=== PATIENT | female | born 1965 | race Caucasian/White ===

== ENCOUNTER 2024-06-21 12:50 | Outpatient (AMB) | payer OTHER, SELFPAY ==
--- NOTE | 2024-06-21 12:50 | A.OFFVIS_ITS ---
Vital Signs 06/21/24 12:51 Height 5 ft 1 in Weight 236 lb 5.369 oz BMI 44.7 BP 120/72 Blood Pressure Location Lt brachial Position Standing Pulse 79 Pulse Source Pulse Oximeter Intake Visit Reasons: GCA/LM Intake Note: Patient present today for [facility] office visit. Fondant Puff Maker Required: No Accompanied by: Self / Same As Patient Allergies ibuprofen Allergy (Mild, Verified 06/21/24 12:56) Unknown varenicline [From Chantix] Allergy (Mild, Verified 06/21/24 12:56) Unknown HPI Comments Details: No records recieved. Hx GCA clinical dx. Tapered off of prednisone 1.5 month ago then restarted on prednisone 5mg qd a month ago for relapsed disease. She has scalp tenderness. No change in symptoms on prednisone 5mg daily. She was instructed from physician at [facility] to taper prednisone every week. SHe felt good when she was on prednisone 20mg qd. Hard time getting up in the morning. Sore shoulders. Going to PT for neck OA/impingement causing neck pain with parathesia in fingers. No jaw pain. Using reading glasses more. No black out. No fevers. 1-1.5 months ago she fractured left ankle (unable to determine it was an old or new fracture). She fell at work a few days before left ankle was symptomatic. [facility] Family History (Updated 06/21/24 @ 13:02 by WARREN Ludwig) Mother Diabetes Heart disease Breast cancer Father Arthritis Liver cancer Social History (Updated 06/21/24 @ 13:02 by WARREN Ludwig) Alcohol intake: never Patient Tobacco Use Status: Current everyday Tobacco user Review of Systems Const All systems reviewed & are unremarkable except as noted in HPI and below Physical Exam Vital Signs: Last Vital Signs Pulse 79 06/21/24 12:51 BP 120/72 06/21/24 12:51 BMI result Body Mass Index 44.7 Const General: healthy appearing and comfortable Resp Auscultation: clear to auscultation bilaterally Cardio Rate: regular rate Rhythm: regular rhythm Heart sounds: S1 normal heart sound present and S2 normal heart sound present Extrem Other: Tender bilateral temples. Scalp tenderness on palpation. Able to get up from seated position without using arm rest. Pain with shoulder abduction above 90 degrees bilateral with max abduction 120 degrees bilateral. No synovitis Limited full ROM of hips and shoulders General: Yes normal gait Assessment & Plan Assessment & Plan (1) Giant cell arteritis: Comment: Clinical dx (TA bx negative) with concurrent PMR. Relapsed - scalp tenderness, fatigue, shoulder/hip girdle pain. Tapered off prednisone too fast. Will obtain labs to assess disease activity and increase prednisone. Code(s): M31.6 - Other giant cell arteritis Category: Medical Plan: Check esr and crp tomorrow then increase prednisone 20mg qd for a month. in 4 weeks recheck esr and crp. Plan to start tapering prednisone slowly if inflammatory markers are normal and patient feels well. RTC 3 months (2) PMR (polymyalgia rheumatica): Comment: Uncontrolled Code(s): M35.3 - Polymyalgia rheumatica Category: Medical Plan: See above (3) Long-term use of high-risk medication: Comment: intermediate use of prednisone Code(s): Z79.899 - Other senior care (current) drug therapy Category: Medical Plan: She will need bone density Plan . Orders: Orders Alanine Aminotransferase Today M31.6 - Other giant cell arteritis, Z79.899 - Other senior care (current) drug therapy Creatinine Today Z79.899 - Other terminal makeup operator (current) drug therapy Erythrocyte Sedimentation Rate Today M31.6 - Other giant cell arteritis, Z79.899 - Other terminal makeup operator (current) drug therapy Albumin Level Today M31.6 - Other giant cell arteritis Erythrocyte Sedimentation Rate 1 Month M31.6 - Other giant cell arteritis, Z79.899 - Other senior care (current) drug therapy C Reactive Protein 1 Month M31.6 - Other giant cell arteritis, Z79.899 - Other terminal makeup operator (current) drug therapy Aspartate Amino Transferase Today M31.6 - Other giant cell arteritis C Reactive Protein Today M31.6 - Other giant cell arteritis Complete Blood Count Auto Diff Today M31.6 - Other giant cell arteritis Vitamin D 25-OH Total Today Z79.899 - Other senior care (current) drug therapy Calcium Today Z79.899 - Other senior care (current) drug therapy XR DEXA axial skeleton 06/21/24 M31.6 - Other giant cell arteritis, Z79.899 - Other senior care (current) drug therapy Medications: New prednisone 20 mg PO DAILY 1 tab 1RF Coding Level of Care Code Est Pt Level 4 (42392) Complex EM visit Add On G2211 Diagnoses Giant cell arteritis M31.6 PMR (polymyalgia rheumatica) M35.3 Long-term use of high-risk medication Z79.899
[2024-06-21 12:51] VITALS: BP 120/72; PULSE 79; BMI 44.7
== END 2024-06-21 13:42 | disposition home or self-care (01) ==
PROVIDERS: Visit Provider Internal Medicine Rheumatology
DX: M31.6 Other giant cell arteritis (principal); M35.3 Polymyalgia rheumatica; Z79.899 Other long term (current) drug therapy
CPT/HCPCS: 99214

== ENCOUNTER 2024-06-22 07:39 | Outpatient (REF) | payer OTHER, SELFPAY ==
[2024-06-22 10:30] LABS: MANUAL DIFF FLAG NO
[2024-06-22 10:32] LABS: Basophils Absolute Auto 0.1 X10*3/uL (0.0-0.2); Basophils Percent Auto 0.9 % (0-2); Eosinophils Absolute Auto 0.2 X10*3/uL (0.0-0.4); Eosinophils Percent Auto 3.1 % (0-4); Hematocrit 37.8 % (37.0-47.0); Hemoglobin 12.3 g/dl (12.0-16.0); Imm Gran Abs Auto 0.01 X10*3/uL (0.00-0.03); Imm Gran Pct Auto 0.2 % (0.0-0.4); Lymphocytes Absolute Auto 1.5 X10*3/uL (1.2-4.9); Lymphocytes Percent Auto 27.4 % (20-40); Mean Corpuscular HGB Conc 32.5 g/dl (31.0-35.0); Mean Corpuscular Volume 92.2 fL (80.0-98.0); Mean Platelet Volume 8.8 fL (9.4-12.3); Monocytes Absolute Auto 0.5 X10*3/uL (0.1-1.2); Monocytes Percent Auto 8.5 % (2-11); Neutrophils Absolute Auto 3.3 x10*3/uL (2.0-8.3); Neutrophils Percent Auto 59.9 % (45-73); Platelet Count 270 X10*3/uL (160-400); White Blood Count 5.4 X10*3/uL (4.8-10.8)
[2024-06-22 11:07] LABS: Alanine Aminotransferase 27 U/L (0-31); Albumin Level 4.2 g/dL (3.5-5.0); Aspartate Amino Transferase 21 U/L (5-31); C Reactive Protein 1.48 mg/dL (< or = 0.50); Calcium 9.1 mg/dL (8.4-10.2); Estimated Glomerular Filt Rate > 60
[2024-06-22 11:09] LABS: Vitamin D 25-OH Total 27.9 ng/mL (>30)
[2024-06-22 11:19] LABS: Erythrocyte Sedimentation Rate 25 MM/HR (0-20)
== END 2024-06-22 07:40 | disposition home or self-care (01) ==
LOC: HO.10HDL 07:39
PROVIDERS: Visit Provider Internal Medicine Rheumatology
DX: M31.6 Other giant cell arteritis (principal); Z79.899 Other long term (current) drug therapy
CPT/HCPCS: 36415; 82040; 82306; 82310; 82565; 84450; 84460; 85025; 85652; 86140

== ENCOUNTER 2024-08-28 11:17 | Outpatient (AMB) | payer OTHER, SELFPAY ==
--- NOTE | 2024-08-28 11:54 | A.OFFVIS_ITS ---
Vital Signs 08/28/24 11:56 Height 5 ft 1 in Weight 248 lb 4 oz BMI 46.9 BP 132/78 Blood Pressure Location Lt brachial Position Sitting Pulse 89 Pulse Source Pulse Oximeter Pulse Oximetry (%) 97 Oxygen Delivery Method Room Air Intake Visit Reasons: follow up Intake Note: Patient presents for follow up on Giant cell arteritis and PMR, and lab review. She last saw Dr. Dewitt on 06/21/2024. Allergies ibuprofen Allergy (Mild, Verified 08/28/24 11:57) Unknown varenicline [From Chantix] Allergy (Mild, Verified 08/28/24 11:57) Unknown HPI HPI follow up: Details: She has not had prednisone in 3 weeks. She was attempting to go to [facility] on [address] but it was temporarily closed. She eventually had labs done which reveal persistent elevation of inflammatory markers. When on prednisone 20 mg daily she had about 50% benefit in reducing her pain and stiffness. She reports that headaches were resolved and she was functioning better. Since being off of prednisone she has had recurrent headaches, scalp tenderness, increased pain in her arms and legs. She has stiffness all day. She had to call out of work a few times. She has difficulty getting up from seated position. [facility] Family History (Updated 06/21/24 @ 13:02 by WARREN Ludwig) Mother Diabetes Heart disease Breast cancer Father Arthritis Liver cancer Social History (Updated 06/21/24 @ 13:02 by WARREN Ludwig) Alcohol intake: never Patient Tobacco Use Status: Current everyday Tobacco user Review of Systems Const All systems reviewed & are unremarkable except as noted in HPI and below Physical Exam Vital Signs: Last Vital Signs Pulse 89 08/28/24 11:56 BP 132/78 08/28/24 11:56 Pulse Ox 97 08/28/24 11:56 Oxygen Delivery Method Room Air 08/28/24 11:56 BMI result Body Mass Index 46.9 Const Other: General: Comfortable CVS: RRR Respiratory: clear to auscultation bilaterally. Good respiratory effort Skin: No lesions seen MSK: She is able to get up from seated position to standing position but with difficulty and pain. She walks slowly to exam table. Shoulder abduction 90 degrees with limited full internal and external rotation bilaterally. She has no synovitis on exam. Knee and hip flexion is limited bilaterally due to pain. Diffuse allodynia upper extremities and lower extremities. Results Reviewed Results Reviewed: [facility] 2022 and 2023 reviewed. T spot and hepatitis panel up-to-date. Assessment & Plan Assessment & Plan (1) Giant cell arteritis: Comment: Clinical dx (bilateral TA bx negative) with concurrent PMR. Initially presenting with headaches, jaw claudication, scalp tenderness, stiffness, shoulder girdle and hip girdle pain with reduced function. She responded to high dose prednisone but was tapered too quickly at the [facility] 04/2024 and relapsed with headaches, scalp tenderness, fatigue, stiffness, shoulder/hip girdle pain. She has been out of prednisone for 3 weeks and subsequently relapse, which is reflected on her recent inflammatory markers being elevated off of prednisone. We discussed the importance of tapering prednisone slowly to prevent relapse. Code(s): M31.6 - Other giant cell arteritis Category: Medical Plan: Prednisone 40 mg daily prescribed Patient will call in 1 week to report clinical update with response to prednisone Inflammatory markers, calcium, vitamin-D, albumin ordered for next visit Return to clinic in 2 months. We will consider Actemra. History of hyperlipidemia controlled on atorvastatin. (2) PMR (polymyalgia rheumatica): Comment: Uncontrolled off of prednisone. Code(s): M35.3 - Polymyalgia rheumatica Category: Medical Plan: See plan above (3) Fibromyalgia: Comment: Diffuse allodynia is consistent with fibromyalgia. Code(s): M79.7 - Fibromyalgia Category: Medical Plan: We will treat relapsed chronic autoimmune disease with prednisone and and re- evaluate her next visit. Return to clinic in 2 months (4) Long-term use of high-risk medication: Comment: bed bug exterminator use of prednisone Code(s): Z79.899 - Other [facility] (current) drug therapy Category: Medical Plan: Calcium, albumin, vitamin-D ordered She will need bone density next visit due to long-term use of systemic glucocorticoid therapy Return to clinic in 2 months Orders: Orders Calcium 2 Weeks Z79.899 - Other middle or intermediate school principal (current) drug therapy Erythrocyte Sedimentation Rate 2 Weeks M31.6 - Other giant cell arteritis, M35.3 - Polymyalgia rheumatica C Reactive Protein 2 Weeks M31.6 - Other giant cell arteritis, M35.3 - Polymyalgia rheumatica Vitamin D 25-OH Total 2 Weeks Z79.899 - Other [facility] (current) drug therapy Albumin Level 2 Weeks Z79.899 - Other middle or intermediate school principal (current) drug therapy Medications: New prednisone Take with food. 40 mg (2 x 20 mg) PO DAILY 60 tabs 0RF Coding Level of Care Code Est Pt Level 4 (37423) Complex EM visit Add On G2211 Diagnoses Giant cell arteritis M31.6 PMR (polymyalgia rheumatica) M35.3 Fibromyalgia M79.7 Long-term use of high-risk medication Z79.897
[2024-08-28 11:56] VITALS: BP 132/78; PULSE 89; O2SAT 97; BMI 46.9
== END 2024-08-28 12:28 | disposition home or self-care (01) ==
PROVIDERS: Visit Provider Internal Medicine Rheumatology
DX: M31.6 Other giant cell arteritis (principal); M35.3 Polymyalgia rheumatica; M79.7 Fibromyalgia; Z79.899 Other long term (current) drug therapy
CPT/HCPCS: 99214

== ENCOUNTER 2024-09-19 09:19 | Outpatient (REF) | payer OTHER, SELFPAY ==
[2024-09-19 12:08] LABS: C Reactive Protein 1.07 mg/dL (< or = 0.50)
[2024-09-19 12:15] LABS: Vitamin D 25-OH Total 34.7 ng/mL (>30)
[2024-09-19 12:20] LABS: Erythrocyte Sedimentation Rate 27 MM/HR (0-20)
== END 2024-09-19 09:20 | disposition home or self-care (01) ==
LOC: HO.WFDLDS 09:19
PROVIDERS: Visit Provider Internal Medicine Rheumatology
DX: Z79.899 Other long term (current) drug therapy (principal); M35.3 Polymyalgia rheumatica; M31.6 Other giant cell arteritis
CPT/HCPCS: 36415; 82040; 82306; 82310; 85652; 86140

== ENCOUNTER 2024-09-20 12:22 | Outpatient (AMB) | payer OTHER, SELFPAY ==
[2024-09-20 12:33] VITALS: BP 118/68; PULSE 91; O2SAT 96; BMI 46.9
--- NOTE | 2024-09-20 12:33 | MHC.OFFVIS ---
Vital Signs 09/20/24 12:33 Height 5 ft 1 in Weight 248 lb 8 oz BMI 46.9 BP 118/68 Blood Pressure Location Lt brachial Position Sitting Pulse 91 Pulse Source Pulse Oximeter Pulse Oximetry (%) 96 Oxygen Delivery Method Room Air Intake Visit Reasons: Follow up 3mo Intake Note: Patient presents for follow up. Patient gained weight and knee surgery was cx would like to stop prednisone and try something else Allergies ibuprofen Allergy (Mild, Verified 09/20/24 12:35) Unknown varenicline [From Chantix] Allergy (Mild, Verified 09/20/24 12:35) Unknown HPI HPI Follow up 3mo: Details: She is on prednisone 60 mg daily. She has headaches every other day rather than daily. She describes headaches in the left temporal region. Jaw pain has resolved. Scalp tenderness has resolved. She has less pain and increase mobility. She continues to have pain but the intensity has reduced. She has left buttocks pain when she is seated. She still has difficulty getting out of the chair from seated position. She has tremors in her extremities. She has difficulty sleeping and thinks she has restless leg syndrome. This all started since being on higher dose of prednisone. Knee replacement surgery has been delayed as patient has gained weight from her last visit with orthopedic surgeon. She has been on FMLA out of work for the last 2 weeks. [facility] Family History Mother Diabetes Heart disease Breast cancer Father Arthritis Liver cancer Social History Alcohol intake: never Patient Tobacco Use Status: Current everyday Tobacco user Review of Systems Const All systems reviewed & are unremarkable except as noted in HPI and below Physical Exam Vital Signs: Last Vital Signs Pulse 91 09/20/24 12:33 BP 118/68 09/20/24 12:33 Pulse Ox 96 09/20/24 12:33 Oxygen Delivery Method Room Air 09/20/24 12:33 BMI result Body Mass Index 46.9 Const Other: General: Comfortable CVS: RRR Respiratory: clear to auscultation bilaterally. Good respiratory effort Skin: No lesions seen MSK: She is able to get up from seated position to standing position without using arm rests. Shoulder abduction 160 degrees with good internal and external rotation. She has no synovitis on exam. Knee and hip flexion is limited bilaterally due to pain with crepitus. Bilateral trochanteric bursa tenderness is found. Assessment & Plan Assessment & Plan (1) Giant cell arteritis: Comment: Clinical dx (bilateral TA bx negative) with concurrent PMR. She has had benefit on increase prednisone 40mg daily but not complete resolution of GCA and PMR symptoms. She also has persistent elevation in inflammatory markers. She is experiencing tremors in upper and lower extremities, anxiety and weight gain due to intermediate designer prednisone use. Her knee replacement surgery has to be held until patient loses 20 lbs. She is currently on FMLA due to planned knee surgery. We discussed the risk of having active autoimmune diseases requiring high dose prednisone and escalation of immunosuppression therapy on increased risk of infection and delayed wound healing after surgery and that it would be best to postpone total knee replacement until her disease is under better controlled, ideally when it is in remission and off of prednisone. I recommended tapering prednisone slowly. Actemra is indicated. We discussed treatment with Actemra, side effects, benefits and drug monitoring. She has a history of hyperlipidemia controlled on atorvastatin. Initially presenting with headaches, jaw claudication, scalp tenderness, stiffness, shoulder girdle and hip girdle pain with reduced function. She responded to high dose prednisone but was tapered too quickly at the [facility] 04/[facility]24 and relapsed with headaches, scalp tenderness, fatigue, stiffness, shoulder/hip girdle pain. She relapsed when she was out of prednisone for 3 weeks with elevated inflammatory markers. She was restarted on prednisone 20 mg daily then it was increased to 40 mg daily 08/2024. Code(s): M31.6 - Other giant cell arteritis Category: Medical Plan: Fasting lipid panel and baseline labs prior to starting Actemra ordered. After lab results are back, I will start PA process for actemra [place]. Decrease prednisone to 30 mg daily for 1 week then 5 mg every week until she is on 10 mg daily. She will then remain on 10 mg daily Patient will call office in 1 week with clinical update She will bring in FMLA forms to complete Return to clinic in 2 months (2) PMR (polymyalgia rheumatica): Comment: Improvement on high dose prednisone but she is experiencing side effects on long-term glue corticosteroid use as mentioned above. Persistent elevation in inflammatory markers. Code(s): M35.3 - Polymyalgia rheumatica Category: Medical Plan: See above (3) Long-term use of high-risk medication: Comment: bed bug exterminator use of prednisone Code(s): Z79.899 - [facility] [place] [facility] drug therapy Category: Medical Plan: She will need a bone density. Ordered last visit Orders: Orders Alanine Aminotransferase Today Z79.60 - bed bug exterminator (current) use of unspecified immunomodulators and immunosuppressants Aspartate Amino Transferase Today Z79.60 - bed bug exterminator (current) use of unspecified immunomodulators and immunosuppressants Creatinine Today Z79.60 - bed bug exterminator (current) use of unspecified immunomodulators and immunosuppressants Hepatitis B,C Profile Today M31.6 - Other giant cell arteritis, M35.3 - Polymyalgia rheumatica T Spot TB Today Z79.899 - Other [place] [facility] drug therapy Lipid Panel Today Z79.899 - Other [place] [facility] drug therapy Complete Blood Count Auto Diff Today Z79.60 - bed bug exterminator (current) use of unspecified immunomodulators and immunosuppressants Medications: New prednisone Take 3 tablets daily 1 week, 2.5 tablet daily 1 week, 2 tablets daily 1 week, 1.5 tablet daily 1 week then stay on 1 tablet daily 10 mg PO DIRECTED 35 days 35 tabs 0RF Coding Level of Care Code Est Pt Level 4 (75481) Complex EM visit Add On G2211 Diagnoses Giant cell arteritis M31.6 PMR (polymyalgia rheumatica) M35.3 Long-term use of high-risk medication Z79.899
--- OUTSIDE RECORDS SUMMARY | 2024-09-20 12:35 | XMS_ITS | Encounter Summary ---
Author Organization [facility] Address [address] [place] [address] Care Team Providers Care Agricultural Extension Officer Name Role Phone Naomi Oliveira MD Primary Care Provider Lubna Hollingsworth Primary Care Provider Unav ailable Reason for Visit * Reason Onset Date Comments Rash 07/10/2020 Encounter Details Date Type Department Care Team Description 07/10/2020 Telephone Medicine/Pediatrics - [address] [id number] Naomi Oliveira MD Rash Social History Tobacco Use Types Packs/Day Years Used Date Smoking Tobacco: Every Day Cigarettes 1 35 Started: 1981 Smokeless Tobacco: Never Comments:now less than 1PPD (~1/2 PPD) Alcohol Use Standard Drinks/Week Comments Yes 0 (1 standard drink = 0.6 oz pur e alcohol) infrequent beer Sex Assigned at Date Recorded Not on file documented as of this encounter Miscellaneous Notes * Telephone Encounter - Melonie Chu L.P.N. - 07/16/2020 8:27 AM EST Left message on unverified voice mail for patient to return our call. * Telephone Encounter - Mitra Thompson L.P.N. - 07/10/2020 5:00 PM EST I tried to contact you today but I was not able to reach you by phone. Please call me at [phone] Thank you, [facility]. * Telephone Encounter - Valery Ramos R.N. - 07/10/2020 4:10 PM EST Left vm for pt to return my call and speak with a nurse * Telephone Encounter - Katie Hough - 07/10/2020 11:45 AM EST Symptoms patient is presenting: pimply rash on back arm and breast, red, sores raised,itchy For ALL patients calling to schedule any appointment (routine, sick visit, follow up, consult, etc.) in the outpatient setting please ask the following questions: ?? Do you have fever of higher than 101, sore throat with difficulty swallowing or severe shortnessof breath? NO If YES to any of these above symptoms, send a message to triage and do not book. Red dot. If no, an audio or video visit should be booked. ?? Have you had close contact with someone with Coronavirus in the last 14 days? NO ?? Have you traveled abroad? NO ?? Have you traveled recently to another state outside of [place], [place], [place], [place], [place], [place], [place]? NO o If yes, did you quarantine for 14 days or have a negative covid test? NO If yes to any of the above, patient is not to be scheduled in office until after 14 day quarantine or negative covid test. If pain or injury related was it due to an accident at work or from a motor vehicle accident? NO If yes, gather 3rd democrat insurance information Date of accident/Injury: How long has patient had these symptoms?: Comes and goes. , getting worse. PCP: NAOMI OLIVEIRA Payor: [employer] [facility] [employer] / Plan: HMO $30 [employer]AS[employer] / Product Type: HMO [id number] documented in this encounter Plan of Treatment Not on file documented as of this encounter Visit Diagnoses Not on filedocumented in this encounter Care Teams Agricultural Extension Officer Relationship Specialty Start Date End Date Naomi Oliveira MD PCP - General Internal Medicine 11/21/18 03/26/21 Lubna Johnson FNP PCP - General Nurse Practitioner Family 11/21/23 documented as of this encounter
--- OUTSIDE RECORDS SUMMARY | 2024-09-20 12:35 | XMS_ITS | Encounter Summary ---
Author Organization [facility] Address [address] [place] [address] Care Team Providers Care Auto Hiker Name Role Phone Lubna Johnson Primary Care Provider Unav ailable Encounter Details Date Type Department Care Team Description 01/12/2024 Transfer Records Medical Records [address], [facility] Social History Tobacco Use Types Packs/Day Years Used Date Smoking Tobacco: Some Days Cigarettes 35 Started: 1981 Smokeless Tobacco: Never Comments:now less than 1PPD (~1/2 PPD) barley smokes Alcohol Use Standard Drinks/Week Comments Yes 0 (1 standard drink = 0.6 oz pur e alcohol) infrequent beer Sex Assigned at Date Recorded Not on file documented as of this encounter Plan of Treatment Not on file documented as of this encounter Visit Diagnoses Not on filedocumented in this encounter Care Teams Auto Hiker Relationship Specialty Start Date End Date Lubna Johnson FNP PCP - General Nurse Practitioner Family 11/21/23 documented as of this encounter
--- OUTSIDE RECORDS SUMMARY | 2024-09-20 12:35 | XMS_ITS | Encounter Summary ---
Author Organization [facility] Address [address] [place] [address] Care Team Providers Care Rfid Strategist Name Role Phone Piotr Isbell MD Primary Care Provider Lubna Hollingsworth Primary Care Provider Lindsey ailnéstor Encounter Details Date Type Department Care Team Description 04/17/2019 Gang Vibrator Operator Report Medical Records [address] [place] [id number] [place] Nila Euceda Social History Tobacco Use Types Packs/Day Years Used Date Smoking Tobacco: Every Day Cigarettes 1 35 Smokeless Tobacco: Never Comments:1 PPD Alcohol Use Standard Drinks/Week Comments Yes 0 (1 standard drink = 0.6 oz pur e alcohol) infrequent beer Sex Assigned at Date Recorded Not on file documented as of this encounter Plan of Treatment Not on file documented as of this encounter Visit Diagnoses Not on filedocumented in this encounter Care Teams Rfid Strategist Relationship Specialty Start Date End Date Piotr Isbell MD PCP - General Internal Medicine 11/21/18 03/26/21 Lubna Johnson FNP PCP - General Nurse Practitioner Family 11/21/23 documented as of this encounter
--- OUTSIDE RECORDS SUMMARY | 2024-09-20 12:35 | XMS_ITS | Encounter Summary ---
Author Organization [facility] Address [address] [place] [address] Care Team Providers Care Manager Helpdesk Name Role Phone Piotr Isbell MD Primary Care Provider Lubna Hollingsworth Primary Care Provider Unav ailable Reason for Visit * Reason Onset Date Comments medication problems 10/29/2019 Encounter Details Date Type Department Care Team Description 10/29/2019 Telephone Medicine/Pediatrics - [address] [phone] Piotr Isbell MD medication problems Social History Tobacco Use Types Packs/Day Years [...] encounter Miscellaneous Notes * Telephone Encounter - Piotr Isbell MD - 10/29/2019 12:52 PM EDT noted * Telephone Encounter - Brittney Mcfadden R.N. - 10/29/2019 12:50 PM EDT Patient would like virtual visit. Virtual visit scheduled for 2:30 pm today * Telephone Encounter - Piotr Isbell MD - 10/29/2019 11:58 AM EDT This would be more appropriately done via telehealth as she was supposed to f/u for mood one month after last visit. Can increase prozac to 40mg daily, can take 4-6 weeks to see clinical improvement,increased risks of stomach upset, constipation, diarrhea, nausea, headache, insomnia, fatigue, libido issues. Could consider short term prn ativan for acute anxiety, this could make her sleepy/groggy/tired, should ideally not be taken prior to work or while driving due to the risk of these side effects. Let me know her thoughts or if she would like to do a telehealth visit even this afternoon. thanks * Telephone Encounter - Brittney Mcfadden R.N. - 10/29/2019 10:58 AM EDT Called and spoke with patient, Complains of Increased anxiety attacks when getting to work. 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 She was off this weekend, experienced shaking/hot, a little SOB. Some stomach upset as well. Denies CP, fever. Attempted to do activities such as walking throughout the weekend with no success. She is asking to either increase her Prozac or get something temporary for the acute symptoms. * Telephone Encounter - Negrita Rae - 10/29/2019 9:51 AM EDT Pt calling states she would like her fluoxetine (PROZAC) 20 MG tablet increased her anxiety is really bad with everything going on Pls advise documented in this encounter Plan of Treatment Not on file documented as of this encounter Visit Diagnoses Not on filedocumented in this encounter Care Teams Manager Helpdesk Relationship Specialty Start Date End Date Piotr Isbell MD PCP - General Internal Medicine 11/21/18 03/26/21 Lubna Johnson FNP PCP - General Nurse Practitioner Family 11/21/23 documented as of this encounter
--- OUTSIDE RECORDS SUMMARY | 2024-09-20 12:35 | XMS_ITS | Encounter Summary ---
Author Organization [facility] Address [address] [place] [address] Care Team Providers Care Yarn Mercerizer Operator Name Role Phone Piotr Isbell MD Primary Care Provider Lubna Hollingsworth Primary Care Provider Lindsey maloney Encounter Details Date Type Department Care Team Description 11/22/2019 Telephone Medicine/Pediatrics - [address] [phone] Piotr Isbell MD Social History Tobacco Use Types Packs/Day Years [...] Telephone Encounter - Piotr Isbell MD - 11/22/2019 3:51 PM EDT Again called patient at 3:51pm, went right to voicemail, will await call back * Telephone Encounter - Piotr Isbell MD - 11/22/2019 3:28 PM EDT Left message, will call her back in a little while, has audio visit now documented in this encounter Plan of Treatment Not on file documented as of this encounter Visit Diagnoses Not on filedocumented in this encounter Care Teams Yarn Mercerizer Operator Relationship Specialty Start Date End Date Piotr Isbell MD PCP - General Internal Medicine 11/21/18 03/26/21 Lubna Johnson FNP PCP - General Nurse Practitioner Family 11/21/23 documented as of this encounter
--- OUTSIDE RECORDS SUMMARY | 2024-09-20 12:35 | XMS_ITS | Encounter Summary ---
Author Organization [facility] Address [address] [place] [address] Care Team Providers Care Transportation Dispatch Manager Name Role Phone Piotr Isbell MD Primary Care Provider Lubna Hollingsworth Primary Care Provider Lindsey ailnéstor Encounter Details Date Type Department Care Team Description 04/24/2019 Transfer Records Medical Records [address] [place] [phone] Abstract, Provider Social History Tobacco Use Types Packs/Day Years Used Date Smoking Tobacco: Every Day Cigarettes 1 35 Smokeless Tobacco: Never Comments:1 PPD Alcohol Use Standard Drinks/Week Comments Yes 0 (1 standard drink = 0.6 oz pur e alcohol) infrequent beer Sex Assigned at Date Recorded Not on file documented as of this encounter Nursing Notes * Jo-Ann Hoff - 04/24/2019 4:23 PM EDT Records received from [facility] sent to Syl Zuluaga RN airframe technician. documented in this encounter Plan of Treatment Not on file documented as of this encounter Visit Diagnoses Not on filedocumented in this encounter Care Teams Transportation Dispatch Manager Relationship Specialty Start Date End Date Piotr Isbell MD PCP - General Internal Medicine 11/21/18 03/26/21 Lubna Johnson FNP PCP - General Nurse Practitioner Family 11/21/23 documented as of this encounter
== END 2024-09-20 13:15 | disposition home or self-care (01) ==
PROVIDERS: PCP Family Medicine; Visit Provider Internal Medicine Rheumatology
DX: M31.6 Other giant cell arteritis (principal); M35.3 Polymyalgia rheumatica; Z79.899 Other long term (current) drug therapy
CPT/HCPCS: 99214

== ENCOUNTER → 2024-09-20 12:22 | Outpatient (BNVA) | payer OTHER, SELFPAY | PROVIDERS: PCP Family Medicine; Visit Provider Internal Medicine Rheumatology ==

== ENCOUNTER 2025-02-01 09:32 | Outpatient (REF) | payer OTHER, SELFPAY ==
--- OUTSIDE RECORDS SUMMARY | 2025-02-01 09:57 | XMS_ITS | Encounter Summary ---
Author Organization [facility] Address [address] [place] [address] Care Team Providers Care High Worker Name Role Phone Naomi Oliveira MD Primary Care Provider Lubna Hollingsworth Primary Care Provider Unav ailable Reason for Visit * Reason Onset Date Comments Rash 07/10/2020 Encounter Details Date Type Department Care Team Description 07/10/2020 Telephone Medicine/Pediatrics - [address] [phone] Naomi Oliveira MD Rash Social History Tobacco [...] you by phone. Please call me at [phone] Thank you, [facility] Triage. * Telephone Encounter - [...] traveled recently to another state outside of [place], [place], [place], [place], [place], [place]? NO o If yes, did you quarantine [...] vehicle accident? NO If yes, gather 3rd alliance party insurance information Date of accident/Injury: How long has patient had these symptoms?: Comes and goes. , getting worse. PCP: NAOMI OLIVEIRA Payor: [email or web address] [facility] [employer] / Plan: HMO $30 [employer] Recorded Future / Product Type: HMO [employer] documented in this encounter Plan of Treatment Not on file documented as of this encounter Visit Diagnoses Not on filedocumented in this encounter Care Teams High Worker Relationship Specialty Start Date End Date Naomi Oliveira MD PCP - General Internal Medicine 11/21/18 03/26/21 Lubna Johnson FNP PCP - General Nurse Practitioner Family 11/21/23 documented as of this encounter
[2025-02-01 11:22] LABS: MANUAL DIFF FLAG NO
[2025-02-01 11:26] LABS: Basophils Percent Auto 0.6 % (0-2); Eosinophils Absolute Auto 0.1 X10*3/uL (0.0-0.4); Eosinophils Percent Auto 2.2 % (0-4); Hematocrit 38.6 % (37.0-47.0); Hemoglobin 12.8 g/dl (12.0-16.0); Imm Gran Abs Auto 0.01 X10*3/uL (0.00-0.03); Imm Gran Pct Auto 0.2 % (0.0-0.4); Lymphocytes Absolute Auto 1.2 X10*3/uL (1.2-4.9); Lymphocytes Percent Auto 21.8 % (20-40); Mean Corpuscular HGB Conc 33.2 g/dl (31.0-35.0); Mean Corpuscular Hemoglobin 29.1 pg (27.0-33.0); Mean Corpuscular Volume 87.7 fL (80.0-98.0); Mean Platelet Volume 9.1 fL (9.4-12.3); Monocytes Absolute Auto 0.4 X10*3/uL (0.1-1.2); Monocytes Percent Auto 6.8 % (2-11); Neutrophils Absolute Auto 3.7 x10*3/uL (2.0-8.3); Neutrophils Percent Auto 68.4 % (45-73); Platelet Count 278 X10*3/uL (160-400); Red Cell Distribution Width 13.2 % (11.0-16.0); White Blood Count 5.5 X10*3/uL (4.8-10.8)
[2025-02-01 11:56] LABS: Alanine Aminotransferase 21 U/L (0-31); Aspartate Amino Transferase 18 U/L (5-31); Cholesterol 181 mg/dL (<200); Estimated Glomerular Filt Rate > 60; HDL Cholesterol 51 mg/dL (>40); LDL Cholesterol Calculated 105 mg/dL (<100); Triglycerides 126 mg/dL (<150)
[2025-02-01 12:01] LABS: HBS Num1 1.35 mIU/mL (0-7.99); HBc Num1 0.06 S/CO (0.00-0.79); HBsAGNum1 0.44 S/CO (0.00-0.99); Hepatitis B Core Antibody Nonreactive (Nonreactive); Hepatitis B Surface Antigen Negative (Negative); ~HepC Num1 0.07 S/CO (0.00-0.79); ~Hepatitis B Surface Antibody NONREACTIVE (Nonreactive); ~Hepatitis C Antibody Nonreactive (Nonreactive)
[2025-02-04 13:13] LABS: TS Negative Control Passed; TS Panel A 0; TS Panel B 0; TS Positive Control Passed; TSpotTB Negative (Negative)
== END 2025-02-01 09:33 | disposition home or self-care (01) ==
LOC: HO.WFDLDS 09:32
PROVIDERS: Visit Provider Internal Medicine Rheumatology
DX: M35.3 Polymyalgia rheumatica (principal); Z79.60 Long term (current) use of unspecified immunomodulators and immunosuppressants; M31.6 Other giant cell arteritis; Z79.899 Other long term (current) drug therapy
CPT/HCPCS: 36415; 80061; 82565; 84450; 84460; 85025; 86481; 86704; 86706; 86803; 87340

== ENCOUNTER 2025-02-07 09:42 | Outpatient (AMB) | payer OTHER, SELFPAY ==
--- NOTE | 2025-02-07 09:45 | A.OFFVIS_ITS ---
Vital Signs 02/07/25 09:46 Height 5 ft 1 in Weight 223 lb 15.834 oz BMI 42.3 BP 120/80 Blood Pressure Location Rt brachial Position Sitting Pulse 72 Pulse Source Pulse Oximeter Pulse Oximetry (%) 98 Oxygen Delivery Method Room Air Intake Visit Reasons: follow up Intake Note: Patient presents for follow up. Allergies ibuprofen Allergy (Mild, Verified 02/07/25 09:46) Unknown varenicline (From Chantix) Allergy (Mild, Verified 02/07/25 09:46) Unknown HPI HPI follow up: Details: MS 15 minutes. Left TKR 12/20/2024. Dizzy on 4 occasions. Seeing ENT next . She is concerned of an inner ear issue. After last visit she stopped prednisone without taper due to weight gain. She gained weight prior to knee replacement surgery, which delayed surgical date. After losing weight, she had knee replacement surgery. She has normal range of motion of her knees and has healed well from surgery. She has been discharged from PT. 3 weeks ago she started having temporal bilateral headaches daily. Tylenol helps. Lasts hours. No jaw pain. +scalp pain. Hard to read small print. Toes cramp at night, sometimes during the day. She continues to have pain in her shoulders and her hips. [facility] Surgical History (Updated 02/07/25 @ 09:50 by Indigo Vivar CMA) History of left knee replacement Family History Mother Diabetes Heart disease Breast cancer Father Arthritis Liver cancer Social History Alcohol intake: never Patient Tobacco Use Status: Current everyday Tobacco user Physical Exam Vital Signs: Last Vital Signs Pulse 72 02/07/25 09:46 BP 120/80 02/07/25 09:46 Pulse Ox 98 02/07/25 09:46 Oxygen Delivery Method Room Air 02/07/25 09:46 BMI result Body Mass Index 42.3 Const Other: General: Comfortable CVS: RRR Respiratory: clear to auscultation bilaterally. Good respiratory effort Skin: No lesions seen MSK: She is able to get up from seated position to standing position without using arm rests. Shoulder abduction 160 degrees with good internal and external rotation with pain. She has no synovitis on exam. Normal knee flexion. Left anterior knee scar has healed. She has tenderness on palpation of bilateral temples. Assessment & Plan Assessment & Plan (1) Giant cell arteritis: Comment: She has been on and off of prednisone for a year with being tapered too quickly or not having prednisone prescription leading to relapse disease of GCA and PMR. She has clinical symptoms of temporal headache, scalp tenderness and shoulder/hip girdle pain, which is tolerable at this time. Long-term glucocorticoid has caused weight gain leading to her left knee replacement surgery being delayed, which finally occurred 12/20/2024. She also experienced anxiety and tremors in her upper and lower extremities with prednisone. Due to side effects patient experienced on prednisone she would like to avoid prednisone. We discuss alternative treatment with Actemra, which is indicated for GCA. Risk of not treating her disease can lead to irreversible blindness with progression of GCA. She had labs done 02/01/2025, which were reviewed with patient. Inflammatory markers were not performed. 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 Initially presenting with headaches, jaw claudication, scalp tenderness, stiffness, shoulder girdle and hip girdle pain with reduced function. She responded to high dose prednisone but was tape[facility] too [facility] and relapsed with headaches, scalp tenderness, fatigue, stiffness, shoulder/hip girdle pain. She relapsed when she was out of prednisone for 3 weeks with elevated inflammatory markers. She was restarted on prednisone 20 mg daily then it was increased to 40 mg daily 08/2024. She has had benefit on high dose prednisone daily but not complete resolution of GCA and PMR symptoms due to incomplete treatment duration as prednisone was either tapered too quickly or she did not have refill for prednisone. She also has suffered side effects of weight gain, anxiety and tremors of upper extremities and lower extremities from long-term glucocorticoid use. She self discontinued prednisone after September 2024 as weight gain from prednisone side effect was delaying surgery, leading to relapse disease. She has a history of hyperlipidemia controlled on atorvastatin. Code(s): M31.6 - Other giant cell arteritis Category: Medical Plan: Inflammatory markers ordered PA Actemra She will call office if symptoms worsen. I will then prescribed prednisone Return to clinic in 3 months (2) PMR (polymyalgia rheumatica): Comment: PMR is active Code(s): M35.3 - Polymyalgia rheumatica Category: Medical Plan: See above Orders: Orders Erythrocyte Sedimentation Rate Today M31.6 - Other giant cell arteritis, M35.3 - Polymyalgia rheumatica, Z79.899 - Other halfway (current) drug therapy C Reactive Protein Today M31.6 - Other giant cell arteritis, M35.3 - Polymyalgia rheumatica, Z79.899 - Other termite exterminator helper (current) drug therapy XR DEXA appendicular skeleton Today M31.6 - Other giant cell arteritis, M35.3 - Polymyalgia rheumatica, Z79.52 - middle or intermediate school principal (current) use of systemic steroids Medications: New tocilizumab (Actemra ACTPen) First dose administration in office. Patient needs to schedule nurse teaching visit. Labs due 4 weeks after starting Actemra. 162 mg (0.9 mL) subcut QWEEK 3.6 mL 2RF 4 weeks Coding Level of Care Code Est Pt Level 4 (71666) Complex EM visit Add On G2211 Diagnoses Giant cell arteritis M31.6 PMR (polymyalgia rheumatica) M35.3
[2025-02-07 09:46] VITALS: BP 120/80; PULSE 72; O2SAT 98; BMI 42.3
== END 2025-02-07 10:38 | disposition home or self-care (01) ==
LOC: HO.RHES 09:43
PROVIDERS: PCP Family Medicine; Visit Provider Internal Medicine Rheumatology
DX: M31.6 Other giant cell arteritis (principal); M35.3 Polymyalgia rheumatica
CPT/HCPCS: 99214; G2211

== ENCOUNTER 2025-02-07 09:42 | Outpatient (REF) | payer OTHER, SELFPAY | END 2025-02-07 09:43 | disposition home or self-care (01) | LOC: HO.HKASLDS 09:42 | PROVIDERS: PCP Family Medicine; Visit Provider Internal Medicine Rheumatology | DX: M35.3 Polymyalgia rheumatica (principal); Z79.899 Other long term (current) drug therapy; M31.6 Other giant cell arteritis | CPT/HCPCS: 36415; 85652; 86140 ==

== ENCOUNTER 2025-04-05 13:37 | Outpatient (REF) | payer OTHER, SELFPAY ==
--- OUTSIDE RECORDS SUMMARY | 2025-04-05 13:42 | XMS_ITS | Clinical Summary ---
Author Organization [facility] Address [address] [place] [phone] Phone Care Team Providers Care 3D Animator Name Role Phone Lubna Johnson MIXER DIAMOND POWDER Primary Care Provider Allergies Active Allergy Reactions Criticality Noted Date Comments Varenicline 06/04/2024 Mental status changes Ibuprofen Nausea and/or Vomiting 06/04/2024 Medications diclofenac sodium (VOLTAREN) 1 % Gel APPLY 2 GRAMS TOPICALLY TO THE AFFECTED AREA FOUR TIMES DAILY NEEDED 3 Active Medication-Free Text Db K-10 Versatile Cream Active sodium hyaluronate (EUFLEXXA) 10 mg/mL(mw 2.4 -3.6 million) injection syringeIndicatio ns:Osteoarthriti s of left knee Inject 2 mL (20 mg total) into the articular space once a week. Inject one prefilled syringe, IA, into left knee weekly x 3 weeks 6 mL 3 Active Additional Information Patient not taking.Reported on 06/07/2024 fluconazole (DIFLUCAN) 150 MG tablet TAKE 1 TABLET BY MOUTH EVERY 72 HOURS 3 Active triamcinolone acetonide 0.1 % ointment APPLY THIN LAYER TOPICALLY TO THE AFFECTED AREA TWICE DAILY 3 Active varenicline (CHANTIX AINSLEY) 0.5 mg (11)- 1 mg (42) tablet take as directed 3 Active losartan (COZAAR) 25 MG tablet Take 1 tablet by mouth every morning. 4 Active predniSONE (DELTASONE) 5 MG tablet Take 5 mg by mouth every morning. 4 Active sertraline (ZOLOFT) 50 MG tablet Take 50 mg by mouth every morning. 4 Active traMADoL (ULTRAM) 50 mg tablet Take 50 mg by mouth 3 (three) times a day as needed. 4 Active Active Problems No known active problems Encounters Date Type Department Care Team Description 03/22/2025 Transcribe Orders [facility] [address] [place] [address] Karissa Branch NP Encounter for rehabilitation (Primary Dx) from Last 3 Months Immunizations Immunization Administration Dates Next Due COVID-19 (Pre-05/30) Pfizer Vaccine, mRNA, PF ,08/10/2020 Social History Tobacco Use Types Packs/Day Years Used Date Smoking Tobacco: Every Day Cigarettes 0.1 39.7 Started: 1984 Smokeless Tobacco: Never Tobacco Cessation:Ready to Q uit: Not Asked; Counseling Given: Not Answered Alcohol Use Standard Drinks/Week Comments Not Currently 1 (1 standard drink = 0.6 oz pur e alcohol) Education Answer Date Recorded Are you interested in more education? Not on patel e 12/03/2022 Are you concerned about learning? Not on file 12/03/2022 No 12/03/2022 No 12/03/2022 Digital Access Answer Date Recorded No 01/01/2023 No 01/01/2023 Reliable internet access at home? Not on file 01/01/2023 Device with a working camera? Not on file Intimate Partner Violence Answer Date R ecorded Are you denied basic needs s uch as food, clothing, or medical care? No 06/07/2024 In the past 12 months have y ou been in a relationship with a person who hurts, threatens, or tries to control you? No 06/07/2024 Are you denied basic needs s uch as food, clothing, or medical care? No 06/07/2024 In the past 12 months have y ou been in a relationship with a person who hurts, threatens, or tries to control you? No 06/07/2024 Comments No Sex and Gender Information Value Date Recorded Sex Assigned at Female 03/28/2021 10:27 AM EDT Legal Sex Female 9:39 PM EDT Gender Identity Female 03/28/2021 10:27 AM EDT Sexual Orientation Not on file Last Filed Vital Signs Vital Sign Reading Time Taken Comments Blood Pressure 100/60 06/07/2024 9:49 AM EDT Pulse 70 06/07/2024 9:49 AM EDT Temperature 36.6 C (97.9 F) 06/07/2024 9:39 AM EDT Respiratory Rate 10 06/07/2024 9:49 AM EDT Oxygen Saturation 98% 06/07/2024 9:49 AM EDT Inhaled Oxygen Concentration - - Weight 107 kg (236 lb) 06/07/2024 8:45 AM EDT Height 154.9 cm (5' 1 ) 06/07/2024 8:45 AM EDT Body Mass Index 44.59 06/07/2024 8:45 AM EDT Plan of Treatment Health Maintenance Due Date Last Done Comments LIPID PANEL 1965 DEPRESSION SCREENING 1978 HEPATITIS C SCREENING 1984 HIV ONE-TIME SCREENING (18-6 5 YEARS) 1984 PNEUMOCOCCAL VACCINES (50+ years) (1 of 2 - PCV) 1985 MAMMOGRAM 2006 COLOGUARD 2011 FIT TEST 2011 FOBT 2011 SIGMOIDOSCOPY 2011 VIRTUAL COLONOSCOPY 2011 ZOSTER VACCINES (1 of 2) 2016 COVID-19 VACCINE (3 - 2023-2 5 season) 2024 08/31/2020, 08/10/2020 CREATININE LEVEL 06/14/2024 06/14/2023, 05/15/2023 POTASSIUM LEVEL 06/14/2024 06/14/2023, 05/15/2023 INFLUENZA VACCINE (#1) 2025 SMOKING Hx and SMOKELESS TOBACCO SCREENING 06/07/2025 06/07/2024 PAP SMEAR 09/29/2025 09/29/2022 SCREENING FOR DIABETES 06/14/2026 06/14/2023 Adult Td,Tdap Booster 04/12/2029 04/12/2019 , 06/26/2010 COLONOSCOPY 06/07/2034 06/07/2024 COLORECTAL CANCER SCREENING 06/07/2034 HEPATITIS A VACCINES Aged Out No long er eligible based on patient's age to complete this topic HIB VACCINES Aged Out No longer eligi ble based on patient's age to complete this topic MENINGOCOCCAL VACCINES (ACWY) Aged Out No longer eligible based on patient's age to complete this topic MENINGOCOCCAL VACCINES (B) Aged Out N o longer eligible based on patient's age to complete this topic Medical Devices Not on file Procedures Procedure Name Priority Date/Time Associated Diagnosis Comments ENDOSCOPY, COLON 06/07/2024 9:16 AM EDT BASIC METABOLIC PANEL STAT 06/14/2023 11:33 AM EST PAP TEST Routine 09/29/2022 12:00 AM EST from Last 3 Months or Most Recently Relevant to Health Maintenance Results * ENDOSCOPY, COLON (06/07/2024 9:16 AM EDT) Narrative Transcriptions Anuj Matute MD - 06/07/2024 9:16 AM EDT [facility] Patient Name: Nida Black Attending MD:: ANUJ MATUTE MD, Procedure Date: 06/07/2024 9:16 AM Date of : 1965 Age: 58 Admit Type: Outpatient Gender: Female Room: [place] [address] Referring MD: Lubna Johnson Exam Type: Colonoscopy Indications: Surveillance: Personal history of adenomatouspolyps on last colonoscopy > 5 years ago, Lastcolonoscopy: October 2016 Medications: Monitored Anesthesia Care Procedure: Informed consent was obtained from the patientafter discussion of the indications, limitations, alternatives, benefits, and risks of the procedure. Risks specifically discussed include but are not limited to medication reactions, missed lesions, bleeding, perforation, or the need for emergent surgery. Throughout the procedure, the patient's blood pressure, pulse, end-tidal CO2, and oxygensaturations were monitored continuously. The Olympus adult variable colonoscope CF-[id number] #4 was introduced through the anus and advanced to the cecum, identified by the appendiceal orifice, ileocecal valve and palpation. The colonoscopy was performed with moderate difficulty due to aredundant colon and significant looping. Successfulcompletion of the procedure was aided by applying abdominal pressure. The patient tolerated the procedure. The quality of the bowel preparation was evaluatedusing the BBPS (Lyons Bowel Preparation Scale) withscores of: Right Colon = 1 (portion of mucosa seen, butother areas not well seen due to staining, residual stool and/or opaque liquid), Transverse Colon = 2 (minor amount of residual staining, small fragments ofstool and/or opaque liquid, but mucosa seen well) andLeft Colon = 2 (minor amount of residual staining, small fragments of stool and/or opaque liquid, but mucosa seen well). The total BBPS score equals 5. The ileocecal valve, appendiceal orifice, and rectumwere photographed. Complications: No immediate complications. Estimated blood loss: Minimal. Findings: The perianal and digital rectal examinations were normal. Pertinent negatives include normalsphincter tone. A 6 mm polyp was found in the hepatic flexure. The polyp was sessile. The polyp was removed with acold snare. Resection and retrieval were complete. The colon (entire examined portion) was moderately redundant. A moderate amount of semi-liquid semi-solid stoolwas found in the transverse colon, in the ascendingcolon and in the cecum, making visualization difficult. Retroflexion in the right colon was performed. The exam was otherwise without abnormality ondirect and retroflexion views. Impression: - One 6 mm polyp at the hepatic flexure, removedwith a cold snare. Resected and retrieved. - Redundant colon. - Stool in the transverse colon, in the ascending colon and in the cecum. - The examination was otherwise normal on directand retroflexion views. Recommendation: - I will send results of your biopsy to you andyour referring physician or provider. If you do notreceive notification within 3 weeks, please call ouroffice. - Repeat colonoscopy in 5 years for surveillancebased on pathology results with a 2 day prep. ANUJ MATUTE MD 06/07/2024 9:38:08 AM This report has been signed electronically. Number of Addenda: 0 Note Initiated On: 06/07/2024 9:16 AM Procedure Code(s): --- Professional --- 49838, Colonoscopy, flexible; with removal of tumor(s), polyp(s), or other lesion(s) by snare technique --- Technical --- 52621, Colonoscopy, flexible; with removal of tumor(s), polyp(s), or other lesion(s) by snare technique Diagnosis Code(s): --- Professional --- Z86.010, Personal history of colonic polyps D12.3, Benign neoplasm of transverse colon (hepatic flexure or splenic flexure) Q43.8, Other specified congenital malformations of intestine --- Technical --- Z86.010, Personal history of colonic polyps D12.3, Benign neoplasm of transverse colon (hepatic flexure or splenic flexure) Q43.8, Other specified congenital malformations of intestine CPT copyright 2021 [employer]. All rights reserved. The codes documented in this report are preliminary and upon him coder reviewmay be revised to meet current compliance requirements. Procedure Date: 06/07/2024 9:16:[address] [place] [address] [place] Lubna TATE GI PROCEDURE ORDERABLES Dottie l Result * (ABNORMAL) Basic metabolic panel (06/14/2023 11:33 AM EST) SODIUM 139 133 - 146 mmol/L [facility] CHLORIDE 96 96 - 108 mmol/L [facility] POTASSIUM 2.9(L) 3.3 - 5.1 mmol/L [facility] CO2 29 21 - 35 mmol/L [facility] BUN 8 6 - 19 mg/dL [facility] CREATININE 0.70 0.5 - 1.5 mg/dL [facility] GLUCOSE 125(H) 70 - 99 mg/dL [facility] CALCIUM 9.5 8.4 - 10.3 mg/dL [facility] EGFR 101 >59 mL/min/1.7 3m2 [facility] Comment:Estimated glomerular filtration rate calculated using the CKD-EPI refit equation. ANION GAP 17 10 - 20 mmol/L [facility] Blood 06/14/2023 11:3 3 AM EST 06/14/2023 11:48 AM EST Trae Scales MD LAB BLOOD ORDERAB LES Final Result [address] [address] * (ABNORMAL) Pap Test (09/29/2022 12:00 AM EST) 09/29/2022 10/01/2022 9:1 5 AM EST Narrative SEE NARRATIVE - 10/08/2022 2:50 PM EST [address] [address] Rental Representative: Jo-Ann Thao MD LEAD MINER BLASTING Cytology Report FINAL DIAGNOSIS A. PAP SMEAR (SUREPATH) CE: SPECIMEN ADEQUACY: Satisfactory for evaluation; transformation zone absent/insufficient. INTERPRETATION: EPITHELIAL CELL ABNORMALITY - SQUAMOUS. Atypical squamous cells of undetermined significance. Electronically Signed Out By: HALEY Babb MD(ASCP) By his/her signature above, the pathologist listed as making the Final Diagnosis certifies that he/she has personally reviewed this case and confirmed or corrected the diagnosis. The Pap test is a screening test primarily for squamous cancers and precursors and has associated false-negative and false-positive results. New technologies such as liquid-based preparations may decrease but will not eliminate all false-negative results. Regular sampling and follow-up of unexplained clinical signs and symptoms are recommended to minimize false negative results. PROCEDURES/ADDENDA HPV Testing (Requested) Ordered Date: 10/01/2022 A. PAP SMEAR (SUREPATH) CE: Human Papilloma Virus Test NEGATIVE for high-risk Human Papilloma Virus types 16, 18, 45 and the Other high risk probe set (Includes 31, 33, 35, 39, 51, 52, 56, 58, 59, 66, 68) Note: Testing performed by [facility] HR-HPV analysis. Clinical correlation is advised. This HPV test was performed at [facility], [address] [place] [address]. This test has been FDA approved for SurePath cervical cytology specimens. The accuracy and precision of this test for all other specimen sources has been verified in the Cytopathology Laboratory of the [facility] and has not been cleared or approved by the U.S. Food and Drug Administration. Clinical correlation is advised. CLINICAL HISTORY Date of Last Menstrual Period: 7 YRS AGO Menstrual History: Post Menopausal Other Clinical Conditions: Screening Pap SPECIMEN SOURCE A: PAP SMEAR (SUREPATH) CE Patient Name: NIDA BLACK : 1965 (Age: 57) Sex: F Institution: [facility] Location: [facility] Date of Collection: 09/29/2022 Date of Reported: 10/08/2022 14:50 Results to: Lubna Johnson NP Lubna Johnson NP CYTOLOGY ORDERABLES nal Result SEE NARRATIVE from Last 3 Months or Most Recently Relevant to Health Maintenance Insurance [address] [place] [address] [facility] HMO WORKERS COMPENSATION Care Teams 3D Animator Relationship Specialty Start Date End Date Lubna Johnson NP [address] [place] [phone] [email or web address] PCP - General Nurse Practitioner 06/07/24 Additional Source Comments The information contained in this document represents components of the legal health record. It is not the complete legal health record.[facility]
--- OUTSIDE RECORDS SUMMARY | 2025-04-05 13:42 | XMS_ITS | Encounter Summary ---
Author Organization [facility] Address [address] [facility] [address] [place] [address] Phone Care Team Providers Care Energy Conservation Director Name Role Phone Edel Radford MD Unavailable [phone] Shonda Lim NP Unavailable [phone] Shonda Lim FURNACE REPAIRER Primary Care Provider Pcp, Unknown Primary Care Provider UnavailKiana Perdue Primary Care Provider [phone] Kiana Lozano Primary Care Provider [phone] Pcp, Unknown Primary Care Provider UnavailLubna Frost FURNACE REPAIRER Primary Care Provider Encounter Details Date Type Department Care Team (Late st Contact Info) Description 03/07/2018 Ancillary Orders [address] [place] [address] Samir Nichols MD [address] [place] [phone] [email or web address] Left knee pain, unspecified chronicity Social History Tobacco Use Types Packs/Day Years Used Date Smoking Tobacco: Every Day Cigarettes Smokeless Tobacco: Never Comments Unknown Sex and Gender Information Value Date Recorded Sex Assigned at Female 03/28/2021 10:27 AM EDT Legal Sex Female 9:39 PM EDT Gender Identity Female 03/28/2021 10:27 AM EDT Sexual Orientation Not on file documented as of this encounter Plan of Treatment Not on file documented as of this encounter Results * XR KNEE 4 OR MORE VIEWS (LEFT) (03/07/2018 1:05 PM EDT) Anatomical Region Laterality Modality Knee Left Radiographic Eve ging 03/07/2018 1:10 PM EDT Impressions 03/07/2018 1:12 PM EDT No fractures or dislocation. POS - [id number] Narrative 03/07/2018 1:12 PM EDT HISTORY: Pain after fall. COMPARISON: None. FINDINGS: Five views. No findings suspicious for acute fractures. No subluxations or dislocations. Joint spaces well-maintained. No suspicious lytic or blastic lesions within the bones. No joint effusion. Procedure Note Kvng Lizama MD - 03/07/2018 HISTORY: Pain after fall. COMPARISON: None. FINDINGS: Five views. No findings suspicious for acute fractures. No subluxations ordislocations. Joint spaces well-maintained. No suspicious lytic orblastic lesions within the bones. No joint effusion. IMPRESSION: No fractures or dislocation. POS - [id number] Samir Nichols MD IMG XR LOWER EXTREMITY Final Result documented in this encounter Visit Diagnoses Diagnosis Left knee pain, unspecified chronicity Left knee pain, unspecified chronicity documented in this encounter Additional Health Concerns Infection Onset Date Last Indicated Resolved Time CoV-Risk Comment:COVID-19 test pending 12/19/2019 12/19/2019 01/02/2020 1:24 AM EDT CoV-Risk 05/15/2023 05/15/2023 05/26/2023 1:22 AM EDT documented as of this encounter Care Teams Energy Conservation Director Relationship Specialty Start Date End Date Shonda Lim NP [address] [place] [address] PCP - General 08/11/17 03/27/21 Pcp, Unknown PCP - General 03/28/21 02/21/22 Kiana Lozano PA [address] [place] [address] PCP - General Unknown Provider Specialty 02/22/22 05/14/23 Kiana Lozano PA [address] [place] [address] PCP - General Physician Kiln Transfer Operator 05/15/23 06/13/23 Pcp, Unknown PCP - General 06/14/23 06/06/24 Lubna Johnson NP [address] [place] [phone] PCP - General Nurse Practitioner 06/07/24 Edel Radford MD [address] [facility], [address] [place] [phone] [email or web address] Historical LMR Provider 05/26/17 08/15/21 Shonda Lim NP [address] [place] [address] Historical LMR Provider 05/26/17 08/15/21 documented as of this encounter Additional Source Comments The information contained in this document represents components of the legal health record. It is not the complete legal health record.[facility]
--- OUTSIDE RECORDS SUMMARY | 2025-04-05 13:42 | XMS_ITS | Encounter Summary ---
Author Organization [facility] Address [address] [place] [address] [place] [address] Phone Care Team Providers Care Latent Fingerprint Examiner Name Role Phone Pcp, Unknown Primary Care Provider Lubna Hartmann FAMILY COACH Primary Care Provider Encounter Details Date Type Department Care Team (Late st Contact Info) Description 06/23/2023 Procedure Pass [facility] [address] [place] [address] Social History Tobacco Use Types Packs/Day Years Used Date Smoking Tobacco: Every Day Cigarettes 0.1 39.7 Started: 1984 Smokeless Tobacco: Never Alcohol Use Standard Drinks/Week Comments Yes 1 (1 standard drink = 0.6 oz [...] with a working camera? Not on file Comments No Sex and Gender Information Value Date Recorded Sex Assigned at Female 03/28/2021 10:27 AM EDT Legal Sex Female 9:39 PM EDT Gender Identity Female 03/28/2021 10:27 AM EDT Sexual Orientation Not on file documented as of this encounter Plan of Treatment Not on file documented as of this encounter Visit Diagnoses Not on filedocumented in this encounter Care Teams Latent Fingerprint Examiner Relationship Specialty Start Date End Date Pcp, Unknown PCP - General 06/14/23 06/06/24 Lubna Johnson NP [address] [place] [phone] [email or web address] PCP - General Nurse Practitioner 06/07/24 documented as of this encounter Additional Source Comments The information contained in this document represents components of the legal health record. It is not the complete legal health record.[facility]
--- OUTSIDE RECORDS SUMMARY | 2025-04-05 13:42 | XMS_ITS | Encounter Summary ---
Author Organization [facility] Address [address] [place] [address] Phone Care Team Providers Care Plant Taxonomy Teacher Name Role Phone Edel Radford MD Unavailable [phone] Shonda Lim NP Unavailable [phone] Shonda Lim NP Primary Care Provider [phone] Pcp, Unknown Primary Care Provider UnavailKiana Perdue Primary Care Provider [phone] Kiana Lozano Primary Care Provider [phone] Pcp, Unknown Primary Care Provider UnavailLubna Frost CARTON FILLING MACHINE OPERATOR Primary Care Provider Encounter Details Date Type Department Care Team (Late st Contact Info) Description 03/07/2018 Ancillary Orders [address] [place] [address] Cornelio Vera PA-C [address] [place] [phone] [email or web address] Left knee pain, unspecified chronicity Social History [...] documented as of this encounter Visit Diagnoses Diagnosis Left knee pain, unspecified chronicity documented in this encounter Additional Health Concerns Infection Onset Date Last Indicated Resolved Time CoV-Risk Comment:COVID-19 test pending 12/19/2019 12/19/2019 01/02/2020 1:24 AM EDT CoV-Risk 05/15/2023 05/15/2023 05/26/2023 1:22 AM EDT documented as of this encounter Care Teams Plant Taxonomy Teacher Relationship Specialty Start Date End Date Shonda Lim, CARTON FILLING MACHINE OPERATOR [address] [place] [address] PCP - General 08/11/17 03/27/21 Pcp, Unknown PCP - General 03/28/21 02/21/22 Kiana Lozano PA [address] [place] [address] PCP - General Unknown Provider Specialty 02/22/22 05/14/23 Kiana Lozano PA [address] [place] [address] PCP - General Physician General Road Foreman 05/15/23 06/13/23 Pcp, Unknown PCP - General 06/14/23 06/06/24 Lubna Johnson NP [address] [place] [phone] [email or web address] PCP - General Nurse Practitioner 06/07/24 Edel Radford MD [address] [place] [phone] [email or web address] Historical LMR Provider 05/26/17 08/15/21 Shonda Lim CARTON FILLING MACHINE OPERATOR [address] [place] [address] Historical LMR Provider 05/26/17 08/15/21 documented as of this encounter Additional Source Comments The information contained in this document represents components of the legal health record. It is not the complete legal health record.[facility]
--- OUTSIDE RECORDS SUMMARY | 2025-04-05 13:42 | XMS_ITS | Encounter Summary ---
Author Organization [facility] Address [address] [place] [address] Phone Care Team Providers Care Hearing Aid Assembly Supervisor Name Role Phone Pcp, Unknown Primary Care Provider Lubna Hartmann NP Primary Care Provider Reason for Referral * Outpatient Procedure - Closed Specialty Diagnoses / Procedures Referred By Libertad glez Referred To Contact Radiology Diagnoses Localized edema Procedures Adult Echo TTE Lubna Johnson NP [address] [place] [phone] Phone: tel: fax: [email or web address] Referral ID Status Reason Start Date Expiration Date Visits Re quested Visits Authorized [id number] Closed 06/23/2023 1 1 Encounter Details Date Type Department Care Team (Late st Contact Info) Description 06/23/2023 Transcribe Orders Virtual Department [address] [place] [address] Lubna Johnson NP [address] [place] [address] [email or web address] Localized edema (Primary Dx) Social History Tobacco Use Types Packs/Day Years [...] documented as of this encounter Results * TTE COMPREHENSIVE (08/19/2023 1:51 PM EST) Body Surface Area 2.00 m2 Height 155 cm Weight 104 kg Systolic BP 114 mmHg Diastolic BP 78 mmHg Interventricular Septum Thickness 9 mm Left Ventricle Internal Diameter End Diastole 53 37 - 52 mm Left Ventricle Internal Diameter End Systole 37 22 - 35 mm Left Ventricular Outflow Tract Diameter 18.0 mm LVOT VTI REST 161 mm Left Ventricular Outflow Tract Velocity 1.1 m/s Left Ventricular Outflow Tract Gradient at Rest 5 mmHg Left Ventricular Posterior Wall Thickness 10 mm Ejection Fraction 58 50 - 75 Percent Left Atrium Dimension Anterior-Posterior 30 15 - 40 mm Aortic Valve Mean Gradient 5 mmHg Aortic Valve Time Velocity Integral 213 mm Aortic Valve Peak Velocity 150.0 cm/s Aortic Valve Peak Gradient 9 mmHg Aortic Sinus Diameter 29 mm Ascending Aorta Diameter 29 mm Inferior Vena Cava Diameter 11 0.0 - 21 mm Mitral Valve Deceleration Time 207 ms Mitral Valve A Wave Speed 68.1 cm/s Mitral Valve E Wave Speed 51.4 cm/s Right Ventricle Basal Diameter 20.2 25 - 41 mm Raw LV EF% 51 % Aortic Valve Sinus Index 1 15 19 - 27 mm Ascending Aorta Diameter 15 mm Ascending Aorta Index 15 mm Aortic Sinus Index 15 mm GLS -16.7 % Left Atrial Volume 19 mL Left Atrial Volume Index 9.50 mL/m2 Anatomical Region Laterality Modality Heart Ultrasound Narrative 08/19/2023 2:29 PM EST Normal LV size and wall thickness. LV systolic function is low normal with EF 55 to 60%. There are no clear wall motion abnormalities. Normal diastolic function. Normal RV size and function. There is no hemodynamically significant valvular disease. Global longitudinal strain is borderline normal at -16.7%. No prior study for comparison. Left Ventricle The left ventricular cavity size and wall thickness are normal. Left ventricular systolic function is normal. There are no segmental left ventricular wall motion abnormalities noted. The estimated ejection fraction is 58% (Normal 50-75%). The left ventricular ejection fraction was measured by the bi-plane method of discs. Left ventricular diastolic function appears within normal limits for age. MV E/A 0.8, Medial E' velocity 10.8 cm/s, lateral E' velocity 9.79 cm/s, E/E' avg 5.0. Right Ventricle The right ventricular size is normal. TAPSE 2.61 cm, RV S velocity 16.2 cm/s. The right ventricular systolic function is normal. Left Atrium The left atrium is normal in size. The left atrial anterior-posterior dimension measures 30 mm (normal 15-40 mm). The LA volume index is 9.5 mL/m2 (normal indexed value is 16-34 mL/m2). Right Atrium The right atrium is normal in size. The IVC is normal in size (2.1cm or less). The IVC measures 11 mm (normal <=21 mm). The IVC demonstrates normal collapse with inspiration which is consistent with normal RA pressure. Mitral Valve There is no evidence of mitral stenosis. There is no significant mitral regurgitation detected by spectral and color Doppler. Tricuspid Valve There is no evidence of tricuspid stenosis. There is no evidence of significant tricuspid regurgitation by color and spectral Doppler. There is an insufficient tricuspid regurgitation Doppler profile to calculate a right ventricular systolic pressure. Aortic Valve The aortic valve is tricuspid. There is no evidence of valvular aortic stenosis. The peak aortic valve gradient is 9 mmHg. The mean aortic gradient is 5 mmHg. There is no evidence of aortic regurgitation by color and spectral Doppler. The visualized portions of the thoracic aorta appear normal. Pulmonic Valve The pulmonary valve appears normal. There is no evidence of pulmonic stenosis. There is no evidence of pulmonary regurgitation by color and spectral Doppler. Interatrial Septum The interatrial septum appears normal. General Findings The image quality was good (2). Strain performed. Average global longitudinal strain was calculated at -16.7 % on a Dorothy system. Technique(s) used in the evaluation: Color flow Doppler and Spectral Doppler. The predominant rhythm during the study was sinus. Comparison Findings No prior studies for comparison. us Lubna Johnson NP CV ECHO ORDERABLES Fin al Result documented in this encounter Visit Diagnoses Diagnosis Localized edema- Primary Edema Localized edema Edema documented in this encounter Care Teams Hearing Aid Assembly Supervisor Relationship Specialty Start Date End Date Pcp, Unknown PCP - General 06/14/23 06/06/24 Lubna Johnson, LATOYA [address] [place] [phone] [email or web address] PCP - General Nurse Practitioner 06/07/24 documented as of this encounter Additional Source Comments The information contained in this document represents components of the legal health record. It is not the complete legal health record.[facility]
--- OUTSIDE RECORDS SUMMARY | 2025-04-05 13:42 | XMS_ITS | Encounter Summary ---
Author Organization [facility] Address [address] [place] [address] [place] [address] Phone Care Team Providers Care Instantizer Operator Name Role Phone Kiana Lozano Primary Care Provider [phone] Kiana Lozano Primary Care Provider [phone] Pcp, Unknown Primary Care Provider Lubna Hartmann NP Primary Care Provider Encounter Details Date Type Department Care Team (Late st Contact Info) Description 03/19/2022 Procedure Pass [place] Admitting Dept - Virtual Department [address] [place] [address] Social History Tobacco Use Types Packs/Day Years Used Date Smoking Tobacco: Every Day Cigarettes 0.5 39.7 Started: 1984 Smokeless Tobacco: Never Alcohol Use Standard Drinks/Week Comments Yes 1 (1 standard drink = 0.6 oz pur e alcohol) Comments No Sex and Gender Information Value Date Recorded Sex Assigned at Female 03/28/2021 10:27 AM EDT Legal Sex Female 9:39 PM EDT Gender Identity Female 03/28/2021 10:27 AM EDT Sexual Orientation Not on file documented as of this encounter Plan of Treatment Not on file documented as of this encounter Visit Diagnoses Not on filedocumented in this encounter Additional Health Concerns Infection Onset Date Last Indicated Resolved Time CoV-Risk 05/15/2023 05/15/2023 05/26/2023 1:22 AM EDT documented as of this encounter Care Teams Instantizer Operator Relationship Specialty Start Date End Date Kiana Lozano PA [address] [place] [address] PCP - General Unknown Provider Specialty 02/22/22 Kiana Lozano PA [address] [facility] [place] [address] PCP - General Physician Generator Man 05/15/23 06/13/23 Pcp, Unknown PCP - General 06/14/23 06/06/24 Lubna Johnson NP [address] [place] [phone] [email or web address] PCP - General Nurse Practitioner 06/07/24 documented as of this encounter Additional Source Comments The information contained in this document represents components of the legal health record. It is not the complete legal health record.[facility]
--- OUTSIDE RECORDS SUMMARY | 2025-04-05 13:42 | XMS_ITS | Encounter Summary ---
Author Organization [facility] Address [address] [facility] [address] [place] [address] Phone Care Team Providers Care Log Tumbler Name Role Phone Lubna Johnson FINE SANDER Primary Care Provider Encounter Details Date Type Department Care Team ([facility] st Contact Info) Description 06/07/2024 Procedure Pass [facility] Endoscopy Admitting Dept Virtual Department [address] [place] [address] Social History Tobacco Use Types Packs/Day Years Used Date Smoking Tobacco: Every Day Cigarettes 0.1 39.7 Started: 1984 Smokeless Tobacco: Never Alcohol Use Standard Drinks/Week Comments Not Currently [...] on filedocumented in this encounter Care Teams Log Tumbler Relationship Specialty Start Date End Date Lubna Johnson NP [address] [place] [phone] [email or web address] PCP - General Nurse Practitioner 06/07/24 documented as of this encounter Additional Source Comments The information contained in this document represents components of the legal health record. It is not the complete legal health record.[facility]
--- OUTSIDE RECORDS SUMMARY | 2025-04-05 13:43 | XMS_ITS | Encounter Summary ---
Author Organization [facility] Address [address] [place] [address] Phone Care Team Providers Care Sales Consultant Residential Manager Name Role Phone Pcp, Unknown Primary Care Provider Kiana Mcrae Primary Care Provider [phone] Kiana Lozano Primary Care Provider [phone] Pcp, Unknown Primary Care Provider Lubna Hartmann NP Primary Care Provider Encounter Details Date Type Department Care Team (Late st Contact Info) Description 12/09/2021 Procedure Pass [facility], [address] [address] Social History Tobacco Use Types Packs/Day Years Used Date Smoking Tobacco: Every Day Cigarettes Smokeless Tobacco: Never Alcohol Use Standard Drinks/Week Comments Yes 0 (1 standard drink = 0.6 oz pur e alcohol) Comments Unknown Sex and Gender Information Value Date Recorded Sex Assigned at Female 03/28/2021 10:27 AM EDT Legal Sex Female 9:39 PM EDT Gender Identity Female 03/28/2021 10:27 AM EDT Sexual Orientation Not on file documented as of this encounter Last Filed Vital Signs Vital Sign Reading Time Taken Comments Blood Pressure - - Pulse - - Temperature - - Respiratory Rate - - Oxygen Saturation - - Inhaled Oxygen Concentration - - Weight 90.7 kg (200 lb) 12/10/2021 5:27 PM EDT Height 157.5 cm (5' 2 ) 12/10/2021 5:27 PM EDT Body Mass Index 36.58 12/10/2021 5:27 PM EDT documented in this encounter Plan of Treatment Not on file documented as of this encounter Visit Diagnoses Not on filedocumented in this encounter Additional Health Concerns Infection Onset Date Last Indicated Resolved Time CoV-Risk 05/15/2023 05/15/2023 05/26/2023 1:22 AM EDT documented as of this encounter Care Teams Sales Consultant Residential Manager Relationship Specialty Start Date End Date Pcp, Unknown PCP - General 03/28/21 02/21/22 Kiana Lozano PA [address] [place] [address] PCP - General Unknown Provider Specialty 02/22/22 Kiana Lozano PA [address] [place] [address] PCP - General Physician Automotive Window Tinter 05/15/23 06/13/23 Pcp, Unknown PCP - General 06/14/23 06/06/24 Lubna Johnson NP [address] [place] [phone] [email or web address] PCP - General Nurse Practitioner 06/07/24 documented as of this encounter Additional Source Comments The information contained in this document represents components of the legal health record. It is not the complete legal health record.[facility]
--- OUTSIDE RECORDS SUMMARY | 2025-04-05 13:43 | XMS_ITS | Encounter Summary ---
Author Organization [facility] Address [address] [facility] [address] [place] [address] Phone Care Team Providers Care Director Of Health Care Marketing Name Role Phone Kiana Lozano Primary Care Provider [phone] Pcp, Unknown Primary Care Provider Lubna Hartmann NP Primary Care Provider Encounter Details Date Type Department Care Team (Late st Contact Info) Description 05/24/2023 Procedure Pass [facility] Endoscopy Admitting Dept Virtual Department [address] [place] [address] Social History Tobacco Use Types Packs/Day Years [...] documented as of this encounter Care Teams Director Of Health Care Marketing Relationship Specialty Start Date End Date Kiana Lozano PA [address] [place] [address] PCP - General Physician Rink Rat 05/15/23 06/13/23 Pcp, Unknown PCP - General 06/14/23 06/06/24 Lubna Johnson NP [address] [place] [phone] [email or web address] PCP - General Nurse Practitioner 06/07/24 documented as of this encounter Additional Source Comments The information contained in this document represents components of the legal health record. It is not the complete legal health record.[facility]
--- OUTSIDE RECORDS SUMMARY | 2025-04-05 13:43 | XMS_ITS ---
Author Name [facility] Organization Unknown Care Team Organization Name Specialty Phone Email Start Date End Da te [facility] LAY HENLEY Primary Care 06/15/2022 4
[2025-04-05 17:38] LABS: Baso%MD 0.9 %; Eos%MD 3.5 %; Hematocrit 39.9 % (37.0-47.0); Hemoglobin 13.5 g/dl (12.0-16.0); IG%MD 0.2 %; Lymph%MD 37.7 %; Mean Corpuscular HGB Conc 33.8 g/dl (31.0-35.0); Mean Corpuscular Hemoglobin 29.6 pg (27.0-33.0); Mean Corpuscular Volume 87.5 fL (80.0-98.0); Mono%MD 10.7 %; NRBC Abs Auto 0.000 X10*3/uL (0.0-0.012); NRBC Pct Auto 0.0 /100WBC (0.0-0.2); Neut%MD 47.0 %; Platelet Count 217 X10*3/uL (160-400); Red Blood Count 4.56 X10*6/uL (4.20-5.50); White Blood Count 4.6 X10*3/uL (4.8-10.8)
[2025-04-05 18:08] LABS: Basophils Abs Manual 0.1 X10*3/uL (0.0-0.2); Basophils Percent Manual 2 % (0-2); Eosinophils Absolute Manual 0.1 X10*3/uL (0.0-0.4); Eosinophils Percent Manual 2 % (0-4); Lymphocytes Absolute Manual 1.8 X10*3/uL (1.2-4.9); Lymphocytes Percent Manual 39 % (20-40); Monocytes Absolute Manual 0.2 X10*3/uL (0.1-1.2); Monocytes Percent Manual 4 % (2-11); Neutrophils Percent Manual 53 % (45-73); RBC Morphology NORMAL
[2025-04-05 18:09] LABS: Neutrophils Absolute Manual 2.4 X10*3/uL (2.0-8.3)
[2025-04-05 18:36] LABS: Alanine Aminotransferase 26 U/L (0-31); Aspartate Amino Transferase 25 U/L (5-31); Cholesterol 207 mg/dL (<200); Estimated Glomerular Filt Rate > 60; HDL Cholesterol 59 mg/dL (>40); Triglycerides 96 mg/dL (<150)
== END 2025-04-05 13:38 | disposition home or self-care (01) ==
LOC: HO.WFDLDS 13:37
PROVIDERS: Visit Provider Internal Medicine Rheumatology
DX: M35.3 Polymyalgia rheumatica (principal); M31.6 Other giant cell arteritis; Z79.899 Other long term (current) drug therapy
CPT/HCPCS: 36415; 80061; 82565; 84450; 84460; 85007; 85027; 85652; 86140

== ENCOUNTER 2025-04-17 09:39 | Outpatient (REF) | payer OTHER, SELFPAY ==
[2025-04-17 13:33] LABS: MANUAL DIFF FLAG NO
[2025-04-17 13:55] LABS: Hematocrit 41.7 % (37.0-47.0); Hemoglobin 14.4 g/dl (12.0-16.0); Imm Gran Abs Auto 0.01 X10*3/uL (0.00-0.03); Imm Gran Pct Auto 0.2 % (0.0-0.4); Lymphocytes Absolute Auto 1.3 X10*3/uL (1.2-4.9); Mean Corpuscular HGB Conc 34.5 g/dl (31.0-35.0); Mean Corpuscular Hemoglobin 29.9 pg (27.0-33.0); Mean Corpuscular Volume 86.7 fL (80.0-98.0); NRBC Abs Auto 0.000 X10*3/uL (0.0-0.012); NRBC Pct Auto 0.0 /100WBC (0.0-0.2); Neut%MD 54.0 %; Platelet Count 206 X10*3/uL (160-400); Red Blood Count 4.81 X10*6/uL (4.20-5.50); WBCANC 4.1 X10*3/uL; White Blood Count 4.1 X10*3/uL (4.8-10.8)
== END 2025-04-17 09:40 | disposition home or self-care (01) ==
LOC: HO.HKASLDS 09:39
PROVIDERS: Visit Provider Internal Medicine Rheumatology
DX: Z79.899 Other long term (current) drug therapy (principal)
CPT/HCPCS: 36415; 85025; 85652; 86140

== ENCOUNTER 2025-04-17 09:39 | Outpatient (AMB) | payer OTHER, SELFPAY ==
--- NOTE | 2025-04-17 09:48 | A.OFFVIS_ITS ---
Vital Signs 04/17/25 09:49 Height 5 ft 1 in Weight 238 lb 1.588 oz BMI 45.0 BP 120/90 H Blood Pressure Location Lt brachial Position Sitting Pulse 75 Pulse Source Pulse Oximeter Pulse Oximetry (%) 98 Oxygen Delivery Method Room Air Intake Visit Reasons: follow up Intake Note: Patient presents for fibromyalgia follow up. Accompanied by: Self / Same As Patient Allergies ibuprofen Allergy (Mild, Verified 04/17/25 09:50) Unknown varenicline (From Chantix) Allergy (Mild, Verified 04/17/25 09:50) Unknown HPI HPI follow up: Details: Few weeks she developed pain and stiffness in multiple joints. Pain in shoulders, arms, hands, ankles. Stiffness with sitting too long. Pain in hands is new. Takes tylenol 1000mg TID and ibuprofen 400mg TID. Takes tramadol in between. 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 She is having a hard time out work with lifting her arms. She has left temporal pain. New left sided jaw pain contributing to pain when eating. She had an appointment with dentist and reports that there was no problem with her teeth. She had left-sided x-ray of her teeth. Headaches few times a day. She takes Tylenol and ibuprofen every time she has a headache. She has noted blurry vision and difficulty reading. MS 25 minutes No recent infections. On actemra since 02/2025 [facility] Surgical History History of left knee replacement Family History Mother Diabetes Heart disease Breast cancer Father Arthritis Liver cancer Social History Alcohol intake: never Patient Tobacco Use Status: Current everyday Tobacco user Physical Exam Vital Signs: Last Vital Signs Pulse 75 04/17/25 09:49 BP 120/90 H 04/17/25 09:49 Pulse Ox 98 04/17/25 09:49 Oxygen Delivery Method Room Air 04/17/25 09:49 BMI result Body Mass Index 45.0 Const Other: General: Comfortable CVS: RRR Respiratory: clear to auscultation bilaterally. Good respiratory effort Skin: No lesions seen MSK: She is able to get up from seated position to standing position without using arm rests. Shoulder abduction 160 degrees with good internal and external rotation with pain. She has no synovitis on exam. Normal knee flexion. Temples are not tender on palpation. When she opens her mouth there is a click sound left TMJ. She has tenderness on palpation of left TMJ. Diffuse allodynia of extremities. Assessment & Plan Assessment & Plan (1) Giant cell arteritis: Comment: She has cranial clinical symptoms of temporal headache, scalp tenderness, jaw pain with claudication and shoulder/hip girdle pain, which have worsened since last visit. Diffuse allodynia is consistent with fibromyalgia contributing to her pain. I am concerned that fibromyalgia is the cause of her pain rather than PMR. Her cranial symptoms are worrisome for GCA not being controlled. She started Actemra in February and needs more time for full benefit. Inflammatory markers are normal on Actemra, which is expected due to drug effect. We discussed starting prednisone. She had multiple side effects on prednisone and was on it for a long period of time. She is hesitant to start prednisone at this time. She we will get eye exam to evaluate for anterior ischemic optic neuritis associated with GCA. I will also obtain an MRI of her TMJ to evaluate for alternative causes of her jaw pain. We also discussed the possibility that she may be experiencing rebound headaches with taking Tylenol and ibuprofen t.i.d.. Recent labs reviewed with patient also reveal mild leukopenia, which may be related to Actemra. 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 Initially presenting with headaches, jaw claudication, scalp tenderness, stiffness, shoulder girdle and hip girdle pain with reduced function. She responded to high dose prednisone but [facility] and relapsed with headaches, scalp tenderness, fatigue, stiffness, shoulder/hip girdle pain. She relapsed when she was out of prednisone for 3 weeks with elevated inflammatory markers. She was restarted on prednisone 20 mg daily then it was increased to 40 mg daily 08/2024. She has had benefit on high dose prednisone daily but not complete resolution of GCA and PMR symptoms due to incomplete treatment duration as prednisone was either tapered too quickly or she did not have refill for prednisone. She also has suffered side effects of weight gain, anxiety and tremors of upper extremities and lower extremities from long-term glucocorticoid use. She self discontinued prednisone after September 2024 as weight gain from prednisone side effect was delaying surgery, leading to relapse disease. She has a history of hyperlipidemia controlled on atorvastatin. Code(s): M31.6 - Other giant cell arteritis Category: Medical Plan: Inflammatory markers ordered Continue Actemra 125 mg once week. Labs for drug monitoring ordered with CBC and absolute neutrophil count MRI TMJ ordered Ophthalmology evaluation Discontinue Tylenol and ibuprofen I am starting treatment for fibromyalgia with duloxetine 30 mg daily. After a few weeks if there is no improvement in her pain, I will increase duloxetine to 60 mg daily. Information on fibromyalgia given to patient. She recently was diagnosed with sleep apnea and uses a CPAP machine. I have asked her to follow up with PCP for further management of fibromyalgia. If MRI TMJ does not provide information of an alternative diagnosis to her jaw pain and she continues to have symptoms including headaches after stopping Tylenol and ibuprofen, she agreed that she will start prednisone for treatment of GCA and to prevent irreversible damage, blindness. She will call office if symptoms worsen Return to clinic in 3 months (2) Fibromyalgia: Comment: Diffuse allodynia is consistent with fibromyalgia. Code(s): M79.7 - Fibromyalgia Category: Medical Plan: Duloxetine prescribed Information on fibromyalgia given to patient. I encouraged her to follow up with PCP for further management of fibromyalgia. 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
[2025-04-17 09:49] VITALS: BP 120/90; PULSE 75; O2SAT 98; BMI 45.0
--- OUTSIDE RECORDS SUMMARY | 2025-04-17 11:38 | XMS_ITS | Encounter Summary ---
Author Organization [facility] Address [address] [place] [address] [place] [address] Phone Care Team Providers Care Talent Development Coordinator Name Role Phone Kiana Lozano Primary Care Provider [phone] Kiana Lozano Primary Care Provider [phone] Pcp, Unknown Primary Care Provider Lubna Hartmann NP Primary Care Provider Encounter Details Date Type Department Care Team (Late st Contact Info) Description 03/19/2022 Procedure Pass [place] Admitting Dept - Virtual Department [address] [place] [address] Social History Tobacco Use Types Packs/Day Years [...] documented as of this encounter Care Teams Talent Development Coordinator Relationship Specialty Start Date End Date Kiana Lozano PA [address] [place] [address] PCP - General Unknown Provider Specialty 02/22/22 Kiana Lozano PA [address] [place] [address] PCP - General Physician Stove Refinisher 05/15/23 06/13/23 Pcp, Unknown PCP - General 06/14/23 06/06/24 Lubna Johnson NP [address] [place] [phone] [email or web address] PCP - General Nurse Practitioner 06/07/24 documented as of this encounter Additional Source Comments The information contained in this document represents components of the legal health record. It is not the complete legal health record.[facility]
--- OUTSIDE RECORDS SUMMARY | 2025-04-17 11:38 | XMS_ITS | Encounter Summary ---
Author Organization [facility] Address [address] [place] [address] [place] [address] Phone Care Team Providers Care Hadoop Consultant Name Role Phone Pcp, Unknown Primary Care Provider Lubna Hartmann INSTALLER [employer]IOR [employer]SEM[employer] Primary Care Provider Encounter Details Date Type Department Care Team (Late st Contact Info) Description 06/23/2023 Procedure Pass [facility] [address] [place] [address] Social History Tobacco Use Types Packs/Day Years [...] on filedocumented in this encounter Care Teams Hadoop Consultant Relationship Specialty Start Date End Date Pcp, Unknown PCP - General 06/14/23 06/06/24 Lubna Johnson NP [address] [place] [phone] [email or web address] PCP - General Nurse Practitioner 06/07/24 documented as of this encounter Additional Source Comments The information contained in this document represents components of the legal health record. It is not the complete legal health record.[facility]
--- OUTSIDE RECORDS SUMMARY | 2025-04-17 11:38 | XMS_ITS | Encounter Summary ---
Author Organization [facility] Address [address] [facility] [address] [place] [address] Phone Care Team Providers Care Telecasting Technician Name Role Phone Lubna Johnson WOOL FLEECE SORTER Primary Care Provider Encounter Details Date Type Department Care Team ([facility] st Contact Info) Description 06/07/2024 Procedure Pass [facility] Endoscopy Admitting Dept Virtual Department [address] [place] [address] Social History Tobacco Use Types Packs/Day Years [...] on filedocumented in this encounter Care Teams Telecasting Technician Relationship Specialty Start Date End Date Lubna Johnson NP [address] [place] [phone] [email or web address] PCP - General Nurse Practitioner 06/07/24 documented as of this encounter Additional Source Comments The information contained in this document represents components of the legal health record. It is not the complete legal health record.[facility]
--- OUTSIDE RECORDS SUMMARY | 2025-04-17 11:39 | XMS_ITS | Encounter Summary ---
Author Organization [facility] Address [address] [place] [address] Care Team Providers Care Shift Superintendent Caustic Cresylate Name Role Phone Lubna Johnson Primary Care Provider Unav ailable Encounter Details Date Type Department Care Team Description 01/12/2024 Transfer Records Medical Records [address], [facility] Social History Tobacco Use Types Packs/Day Years [...] on filedocumented in this encounter Care Teams Shift Superintendent Caustic Cresylate Relationship Specialty Start Date End Date Lubna Johnson FNP PCP - General Nurse Practitioner Family 11/21/23 documented as of this encounter
--- OUTSIDE RECORDS SUMMARY | 2025-04-17 11:39 | XMS_ITS | Encounter Summary ---
Author Organization [facility] Address [address] [place] [address] Phone Care Team Providers Care Windows Server Specialist Name Role Phone Edel Radford MD Unavailable [phone] Shonda Lim NP Unavailable [phone] Shonda Lim NP Primary Care Provider [phone] Pcp, Unknown Primary Care Provider UnavailKiana Perdue Primary Care Provider [phone] Kiana Lozano Primary Care Provider [phone] Pcp, Unknown Primary Care Provider UnavailLubna Frost SHANK CUTTER Primary Care Provider Encounter Details Date Type Department Care Team (Late st Contact Info) Description 03/07/2018 Ancillary Orders [address] [place] [address] Cornelio Vera PA-C [address] [place] [phone] [email or web address] Left knee pain, unspecified chronicity Social [...] documented as of this encounter Care Teams Windows Server Specialist Relationship Specialty Start Date End Date Shonda Lim, SHANK CUTTER [address] [place] [address] PCP - General 08/11/17 03/27/21 Pcp, Unknown PCP - General 03/28/21 02/21/22 Kiana Lozano PA [address] [place] [address] PCP - General Unknown Provider Specialty 02/22/22 05/14/23 Kiana Lozano PA [address] [place] [address] PCP - General Physician Car Greaser 05/15/23 06/13/23 Pcp, Unknown PCP - General 06/14/23 06/06/24 Lubna Johnson NP [address] [place] [phone] [email or web address] PCP - General Nurse Practitioner 06/07/24 Edel Radford MD [address] [place] [phone] [email or web address] Historical LMR Provider 05/26/17 08/15/21 Shonda Lim SHANK CUTTER [address] [place] [address] Historical LMR Provider 05/26/17 08/15/21 documented as of this encounter Additional Source Comments The information contained in this document represents components of the legal health record. It is not the complete legal health record.[facility]
--- OUTSIDE RECORDS SUMMARY | 2025-04-17 11:39 | XMS_ITS | Encounter Summary ---
Author Organization [facility] Address [address] [place] [address] Care Team Providers Care Sas Administrator Name Role Phone Piotr Isbell MD Primary Care Provider Lubna Hollingsworth Primary Care Provider Lindsey ailnéstor Encounter Details Date Type Department Care Team Description 04/24/2019 Transfer Records Medical Records [address] [place] [address] Abstract, Provider Social History Tobacco Use Types [...] 04/24/2019 4:23 PM EDT Records received from [facility] sent to Syl Zuluaga RN environmental protection geologist. documented in this encounter Plan of Treatment Not on file documented as of this encounter Visit Diagnoses Not on filedocumented in this encounter Care Teams Sas Administrator Relationship Specialty Start Date End Date Piotr Isbell MD PCP - General Internal Medicine 11/21/18 03/26/21 Lubna Johnson FNP PCP - General Nurse Practitioner Family 11/21/23 documented as of this encounter
--- OUTSIDE RECORDS SUMMARY | 2025-04-17 11:39 | XMS_ITS | Encounter Summary ---
Author Organization [facility] Address [address] [facility] [address] [place] [address] Phone Care Team Providers Care Hand I Blocker Name Role Phone Kiana Lozano Primary Care Provider [phone] Pcp, Unknown Primary Care Provider Lubna Hartmann NP Primary Care Provider Encounter Details Date Type Department Care Team (Late st Contact Info) Description 05/24/2023 Procedure Pass [facility] Endoscopy Admitting Dept Virtual Department [address] [place] [address] Social History Tobacco Use Types Packs/Day Years [...] documented as of this encounter Care Teams Hand I Blocker Relationship Specialty Start Date End Date Kiana Lozano PA [address] [place] [address] PCP - General Physician Orthotic Practitioner 05/15/23 06/13/23 Pcp, Unknown PCP - General 06/14/23 06/06/24 Lubna Johnson NP [address] [place] [phone] [email or web address] PCP - General Nurse Practitioner 06/07/24 documented as of this encounter Additional Source Comments The information contained in this document represents components of the legal health record. It is not the complete legal health record.[facility]
--- OUTSIDE RECORDS SUMMARY | 2025-04-17 11:39 | XMS_ITS | Encounter Summary ---
Author Organization [facility] Address [address] [place] [address] Care Team Providers Care Center Customer Service Associate Name Role Phone Piotr Isbell MD Primary Care Provider Lubna Hollingsworth Primary Care Provider Unav ailable Reason for Visit * Reason Onset Date Comments refill request 08/27/2019 Encounter Details Date Type Department Care Team Description 08/27/2019 Telephone Medicine/Pediatrics - [address] [phone] Piotr Isbell MD refill request Social History Tobacco Use Types Packs/Day Years Used Date Smoking Tobacco: Every Day Cigarettes 1 35 Started: 1981 Smokeless Tobacco: Never Comments:1 PPD Alcohol Use Standard Drinks/Week Comments Yes 0 (1 standard drink = 0.6 oz pur e alcohol) infrequent beer Sex Assigned at Date Recorded Not on file documented as of this encounter Miscellaneous Notes * Telephone Encounter - Mati Contreras PA-C - 08/27/2019 2:09 PM EST All set. * Telephone Encounter - Jacquie Albarado R.N. - 08/27/2019 1:58 PM EST Lisette was requesting the 21mg patched informed of below states will try the 14mg patches order pended * Telephone Encounter - Negrita Rae - 08/27/2019 1:52 PM EST Pt returned call Awaiting call back * Telephone Encounter - Jacquie Albarado R.N. - 08/27/2019 1:40 PM EST Left message to call [phone] to verify dose of nicotine patch * Telephone Encounter - Mati Contreras PA-C - 08/27/2019 12:56 PM EST Patient should be down to the 14 or 7 mg patches at this point * Telephone Encounter - Jacquie Albarado R.N. - 08/27/2019 12:52 PM EST Last refill:06/28/19 Order pended * Telephone Encounter - Tammie Neil - 08/27/2019 12:47 PM EST Patient would like script to be: E-PRESCRIBED/FAXED TO PHARMACY WHEN WAS THE PATIENT'S LAST APPOINTMENT IN ADULT MEDICINE? 05/17/19 WHEN WAS THE LAST TIME THE PATIENT SAW THEIR PCP? Same as above Does patient have an upcoming appointment? Yes 09/18/19 (THE MEDICATION REQUESTED IS ON THE MED LIST ABOVE) All of the medications requested were on the CURRENT MEDS list Did you check the Pharmacy information above?: YES Patient wants: 30 -day supply Is this a mail order prescription request ? NO If the refill is from a FAXED refill request what is the RX # listed on the fax? N/A Patients current insurance carrier is: Payor: [employer] [place] / Plan: [employer] $30 EDNA 1500 /Product Type: HMO [id number] documented in this encounter Plan of Treatment Not on file documented as of this encounter Visit Diagnoses Diagnosis Tobacco dependence Tobacco use disorder documented in this encounter Care Teams Center Customer Service Associate Relationship Specialty Start Date End Date Piotr Isbell MD PCP - General Internal Medicine 11/21/18 03/26/21 Lubna Johnson FNP PCP - General Nurse Practitioner Family 11/21/23 documented as of this encounter
--- OUTSIDE RECORDS SUMMARY | 2025-04-17 11:39 | XMS_ITS | Encounter Summary ---
Author Organization [facility] Address [address] [facility] [address] [place] [address] Phone Care Team Providers Care Unit Technician Name Role Phone Edel Radford MD Unavailable [phone] Shonda Lim NP Unavailable [phone] Shonda Lim INFORMATION DELIVERY ANALYST Primary Care Provider Pcp, Unknown Primary Care Provider UnavailKiana Perdue Primary Care Provider [phone] Kiana Lozano Primary Care Provider [phone] Pcp, Unknown Primary Care Provider UnavailLubna Frost INFORMATION DELIVERY ANALYST Primary Care Provider Encounter Details Date Type Department Care Team (Late st Contact Info) Description 03/07/2018 Ancillary Orders [address] [place] [address] Samir Nichols MD [address] [place] [phone] [email or web address] Left knee pain, unspecified chronicity Social History [...] EDT No fractures or dislocation. POS - [id number] Narrative 03/07/2018 1:12 PM EDT HISTORY: Pain [...] IMPRESSION: No fractures or dislocation. POS - [id number] Samir Nichols MD IMG XR LOWER EXTREMITY [...] documented as of this encounter Care Teams Unit Technician Relationship Specialty Start Date End Date Shonda Lim NP [address] [place] [address] PCP - General 08/11/17 03/27/21 Pcp, Unknown PCP - General 03/28/21 02/21/22 Kiana Lozano PA [address] [place] [address] PCP - General Unknown Provider Specialty 02/22/22 05/14/23 Kiana Lozano PA [address] [place] [address] PCP - General Physician Tack Cutter 05/15/23 06/13/23 Pcp, Unknown PCP - General 06/14/23 06/06/24 Lubna Johnson NP [address] [place] [phone] [email or web address] PCP - General Nurse Practitioner 06/07/24 Edel Radford MD [address] [facility], [address] [place] [phone] [email or web address] Historical LMR Provider 05/26/17 08/15/21 Sohnda Lim NP [address] [place] [address] Historical LMR Provider 05/26/17 08/15/21 documented as of this encounter Additional Source Comments The information contained in this document represents components of the legal health record. It is not the complete legal health record.[facility]
--- OUTSIDE RECORDS SUMMARY | 2025-04-17 11:39 | XMS_ITS | Clinical Summary ---
Author Organization [facility] Address [address] [place] [address] Phone Care Team Providers Care Cannoneer Name Role Phone Lubna Johnson INSPECTOR RETURNED MATERIALS Primary Care Provider Allergies Active Allergy Reactions [...] Department Care Team Description 03/22/2025 Transcribe Orders [facility] [address] [place] [address] Karissa Branch NP Encounter for rehabilitation (Primary [...] 2011 ZOSTER VACCINES (1 of 2) 2016 CREATININE LEVEL 06/14/2024 06/14/2023, 05/15/2023 POTASSIUM LEVEL 06/14/2024 06/14/2023, 05/15/2023 INFLUENZA VACCINE (#1) 2025 COVID-19 VACCINE (3 - 2024-2 6 season) 2025 08/31/2020, 08/10/2020 SMOKING Hx and SMOKELESS TOBACCO SCREENING 06/07/2025 [...] Matute MD - 06/07/2024 9:16 AM EDT [facility] Patient Name: Nida Black Attending MD:: ANUJ MATUTE MD, Procedure Date: 06/07/2024 9:16 AM Date of : 1965 Age: 58 Admit Type: Outpatient Gender: Female Room: [place] [address] Referring MD: Lubna Johnson Exam Type: Colonoscopy [...] monitored continuously. The Olympus adult variable colonoscope [id number] #4 was introduced through the anus and advanced to the cecum, identified by the appendiceal orifice, ileocecal valve and palpation. The colonoscopy was performed with moderate difficulty due to aredundant colon and significant looping. Successfulcompletion of the procedure was aided by applying abdominal pressure. The patient tolerated the procedure. The quality of the bowel preparation was evaluatedusing the BBPS (Gladys Bowel Preparation Scale) withscores of: Right Colon [...] 9:16 AM Procedure Code(s): --- Professional --- 60780, Colonoscopy, flexible; with removal of tumor(s), polyp(s), or other lesion(s) by snare technique --- Technical --- 52077, Colonoscopy, flexible; with removal of tumor(s), polyp(s), [...] congenital malformations of intestine CPT copyright 2021 [employer]. All rights reserved. The codes documented in this report are preliminary and upon hairspring ii inspector reviewmay be revised to meet current compliance requirements. Procedure Date: 06/07/2024 9:16:[address] [place] [address] us Lubna TATE GI PROCEDURE ORDERABLES Dottie l Result * (ABNORMAL) Basic metabolic panel (06/14/2023 11:33 AM EST) SODIUM 139 133 - 146 mmol/L [facility] CHLORIDE 96 96 - 108 mmol/L [facility] POTASSIUM 2.9(L) 3.3 - 5.1 mmol/L [facility] CO2 29 21 - 35 mmol/L [facility] BUN 8 6 - 19 mg/dL [facility] CREATININE 0.70 0.5 - 1.5 mg/dL [facility] GLUCOSE 125(H) 70 - 99 mg/dL [facility] CALCIUM 9.5 8.4 - 10.3 mg/dL [facility] EGFR 101 >59 mL/min/1.7 3m2 [facility] Comment:Estimated glomerular filtration rate calculated using the CKD-EPI refit equation. ANION GAP 17 10 - 20 mmol/L [facility] Blood 06/14/2023 11:3 3 AM EST 06/14/2023 11:48 AM EST Trae Scales MD LAB BLOOD ORDERAB LES Final Result [address] [address] * (ABNORMAL) Pap Test (09/29/2022 12:00 AM EST) 09/29/2022 10/01/2022 9:1 5 AM EST Narrative SEE NARRATIVE - 10/08/2022 2:50 PM EST [address] [address] Head Of Sales And Marketing: Jo-Ann Thao MD FINANCIAL AGENT Cytology Report FINAL DIAGNOSIS A. PAP SMEAR [...] 59, 66, 68) Note: Testing performed by [employer] HR-HPV analysis. Clinical correlation is advised. This HPV test was performed at [facility], [address] [place] [address]. This test has been FDA approved for SurePath cervical cytology specimens. The accuracy and precision of this test for all other specimen sources has been verified in the Cytopathology Laboratory of the [facility] and has not been cleared or approved by the U.S. Food and Drug Administration. Clinical correlation is advised. CLINICAL HISTORY Date of Last Menstrual Period: 7 YRS AGO Menstrual History: Post Menopausal Other Clinical Conditions: Screening Pap SPECIMEN SOURCE A: PAP SMEAR (SUREPATH) CE Patient Name: NIDA BLACK : 1965 (Age: 57) Sex: F Institution: [facility] Location: [facility] Date of Collection: 09/29/2022 Date of Reported: 10/08/2022 14:50 Results to: Lubna Johnson NP Lubna Johnson NP CYTOLOGY ORDERABLES nal Result SEE NARRATIVE from Last 3 Months or Most Recently Relevant to Health Maintenance Insurance [address] [place] [address] [facility] HMO WORKERS COMPENSATION Care Teams Cannoneer Relationship Specialty Start Date End Date Lubna Johnson NP [address] [place] [phone] [email or web address] PCP - General Nurse Practitioner 06/07/24 Additional Source Comments The information contained in this document represents components of the legal health record. It is not the complete legal health record.[facility]
--- OUTSIDE RECORDS SUMMARY | 2025-04-17 11:39 | XMS_ITS | Encounter Summary ---
Author Organization [facility] Address [address] [place] [address] Care Team Providers Care Sustainability Consultant Name Role Phone Lubna Johnson Primary Care Provider Unav ailable Reason for Visit * Reason Onset Date Comments Medication 07/08/2021 Encounter Details Date Type Department Care Team Description 07/08/2021 Refill Gastroenterology - [place] [address] [facility] [address] [place] [phone] Eliecer Arora MD [address] [facility] [address] [place] [address] Medication Social History Tobacco Use Types Packs/Day Years [...] on filedocumented in this encounter Care Teams Sustainability Consultant Relationship Specialty Start Date End Date Lubna Johnson FNP PCP - General Nurse Practitioner Family 11/21/23 documented as of this encounter
--- OUTSIDE RECORDS SUMMARY | 2025-04-17 11:39 | XMS_ITS | Encounter Summary ---
Author Organization [facility] Address [address] [place] [address] Care Team Providers Care Auto Tester Name Role Phone Piotr Isbell MD Primary Care Provider Lubna Hollingsworth Primary Care Provider Unav ailable Reason for Visit * Reason Onset Date Comments medication problems 10/29/2019 Encounter Details Date Type Department Care Team Description 10/29/2019 Telephone Medicine/Pediatrics - [address] [phone] Piotr Isbell MD medication problems Social History [...] when getting to work. 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 She was off [...] filedocumented in this encounter Care Teams Auto Tester Relationship Specialty Start Date End Date Piotr Isbell MD PCP - General Internal Medicine 11/21/18 03/26/21 Lubna Johnson FNP PCP - General Nurse Practitioner Family 11/21/23 documented as of this encounter
--- OUTSIDE RECORDS SUMMARY | 2025-04-17 11:39 | XMS_ITS | Encounter Summary ---
Author Organization [facility] Address [address] [place] [address] Phone Care Team Providers Care Embroidery Assistant Name Role Phone Pcp, Unknown Primary Care Provider Kiana Mcrae Primary Care Provider [phone] Kiana Lozano Primary Care Provider [phone] Pcp, Unknown Primary Care Provider Lubna Hartmann NP Primary Care Provider Encounter Details Date Type Department Care Team (Late st Contact Info) Description 12/09/2021 Procedure Pass [facility], [address] [address] Social History Tobacco Use Types Packs/Day Years [...] documented as of this encounter Care Teams Embroidery Assistant Relationship Specialty Start Date End Date Pcp, Unknown PCP - General 03/28/21 02/21/22 Kiana Lozano PA [address] [place] [address] PCP - General Unknown Provider Specialty 02/22/22 Kiana Lozano PA [address] [place] [address] PCP - General Physician Stem Roller 05/15/23 06/13/23 Pcp, Unknown PCP - General 06/14/23 06/06/24 Lubna Johnson NP [address] [place] [phone] [email or web address] PCP - General Nurse Practitioner 06/07/24 documented as of this encounter Additional Source Comments The information contained in this document represents components of the legal health record. It is not the complete legal health record.[facility]
== END 2025-04-17 10:24 | disposition home or self-care (01) ==
LOC: HO.RHES 09:45
PROVIDERS: PCP Family Medicine; Visit Provider Internal Medicine Rheumatology
DX: M31.6 Other giant cell arteritis (principal); M79.7 Fibromyalgia
CPT/HCPCS: 99214; G2211

== ENCOUNTER 2025-06-18 08:02 | Outpatient (AMB) | payer OTHER, SELFPAY ==
--- OUTSIDE RECORDS SUMMARY | 2025-06-18 08:05 | XMS_ITS | Encounter Summary ---
Author Organization [facility] Address [address] [place] [address] Phone Care Team Providers Care Head Start Teacher Name Role Phone Pcp, Unknown Primary Care Provider Kiana Mcrae Primary Care Provider [phone] Kiana Lozano Primary Care Provider [phone] Pcp, Unknown Primary Care Provider Lubna Hartmann NP Primary Care Provider Encounter Details Date Type Department Care Team (Late st Contact Info) Description 12/09/2021 Procedure Pass [facility], [address] [address] Social History Tobacco Use Types Packs/Day Years [...] documented as of this encounter Care Teams Head Start Teacher Relationship Specialty Start Date End Date Pcp, Unknown PCP - General 03/28/21 02/21/22 Kiana Lozano PA [address] [place] [address] PCP - General Unknown Provider Specialty 02/22/22 Kiana Lozano PA [address] [place] [address] PCP - General Physician School Library Media Program Director 05/15/23 06/13/23 Pcp, Unknown PCP - General 06/14/23 06/06/24 Lubna Johnson NP [address] [place] [phone] [email or web address] PCP - General Nurse Practitioner 06/07/24 documented as of this encounter Additional Source Comments The information contained in this document represents components of the legal health record. It is not the complete legal health record.[facility]
--- OUTSIDE RECORDS SUMMARY | 2025-06-18 08:05 | XMS_ITS | Encounter Summary ---
Author Organization [facility] Address [address] [place] [address] [place] [address] Phone Care Team Providers Care Recycling Or Rubbish Collector Name Role Phone Pcp, Unknown Primary Care Provider Lubna Hartmann OVEREDGE SEWER Primary Care Provider Encounter Details Date Type Department Care Team (Late st Contact Info) Description 06/23/2023 Procedure Pass [facility] [address] [place] [address] Social History Tobacco Use Types Packs/Day Years Used Date Smoking Tobacco: Every Day Cigarettes 0.1 39.9 Started: 1984 Smokeless Tobacco: Never Alcohol Use [...] on filedocumented in this encounter Care Teams Recycling Or Rubbish Collector Relationship Specialty Start Date End Date Pcp, Unknown PCP - General 06/14/23 06/06/24 Lubna Johnson NP [address] [place] [phone] [email or web address] PCP - General Nurse Practitioner 06/07/24 documented as of this encounter Additional Source Comments The information contained in this document represents components of the legal health record. It is not the complete legal health record.[facility]
--- OUTSIDE RECORDS SUMMARY | 2025-06-18 08:05 | XMS_ITS | Clinical Summary ---
Author Organization [facility] Address [address] [place] [address] Phone Care Team Providers Care Director Of Teaching And Learning Name Role Phone Lubna Johnson FRUIT OR NUT CROPS FARM MANAGER Primary Care Provider Allergies Active Allergy Reactions [...] Department Care Team Description 03/22/2025 Transcribe Orders [facility] Services [address] [place] [address] Karissa Branch NP Encounter for rehabilitation (Primary Dx) from Last 3 Months Immunizations Immunization Administration Dates Next Due COVID-19 (Pre-05/30) Pfizer Vaccine, mRNA, PF ,08/10/2020 Social History Tobacco Use Types Packs/Day Years Used Date Smoking Tobacco: Every Day Cigarettes 0.1 39.9 Started: 1985 Smokeless Tobacco: Never Tobacco Cessation:Ready [...] Comments LIPID PANEL 1966 DEPRESSION SCREENING 1978 SMOKING Hx and SMOKELESS TOBACCO SCREENING 1979 HEPATITIS C SCREENING 1984 HIV ONE-TIME SCREENING (18-6 5 YEARS) 1984 PNEUMOCOCCAL VACCINES (50+ years) (1 of 2 - PCV) 1985 MAMMOGRAM 2006 COLOGUARD 2011 FIT TEST 2011 FOBT 2011 SIGMOIDOSCOPY 2011 VIRTUAL COLONOSCOPY 2011 RSV VACCINE (1 - Risk 50-74 years 1-dose series) 2016 ZOSTER VACCINES (1 of 2) 2016 CREATININE LEVEL 06/14/2024 06/14/2023, 05/15/2023 POTASSIUM LEVEL 06/14/2024 06/14/2023, 05/15/2023 INFLUENZA VACCINE (#1) 2025 COVID-19 VACCINE (3 - 2024-2 6 season) 2025 08/31/2020, 08/10/2020 PAP SMEAR 09/29/2025 09/29/2022 SCREENING FOR DIABETES 06/14/2026 06/14/2023 Adult Td,Tdap Booster 04/12/2029 04/12/2019 , 06/26/2010 COLONOSCOPY 06/07/2034 06/07/2024 COLORECTAL CANCER SCREENING 06/07/2034 HEPATITIS A VACCINES Aged Out No long er eligible based on patient's age to complete this topic HIB VACCINES Aged Out No longer eligi ble based on patient's age to complete this topic IPV VACCINES Aged Out No longer eligi ble [...] 06/07/2024 9:16 AM EDT BASIC METABOLIC PANEL (BMP) STAT 06/14/2023 11:33 AM EST PAP TEST Routine 09/29/2022 12:00 AM EST from Last 3 Months or Most Recently Relevant to Health Maintenance Results * ENDOSCOPY, COLON (06/07/2024 9:16 AM EDT) Narrative Transcriptions Anuj Matute MD - 06/07/2024 9:16 AM EDT [facility] Patient Name: Kush Black Attending MD:: ANUJ MATUTE MD, Procedure Date: 06/07/2024 9:16 AM Date of : 1965 Age: 58 Admit Type: Outpatient Gender: Female Room: [place] [address] Referring MD: Lubna Johnson Exam Type: Colonoscopy [...] monitored continuously. The Olympus adult variable colonoscope [id number] #4 was introduced through the anus and advanced to the cecum, identified by the appendiceal orifice, ileocecal valve and palpation. The colonoscopy was performed with moderate difficulty due to aredundant colon and significant looping. Successfulcompletion of the procedure was aided by applying abdominal pressure. The patient tolerated the procedure. The quality of the bowel preparation was evaluatedusing the BBPS ([place] Bowel Preparation Scale) withscores of: Right Colon [...] 9:16 AM Procedure Code(s): --- Professional --- 12814, Colonoscopy, flexible; with removal of tumor(s), polyp(s), or other lesion(s) by snare technique --- Technical --- 59702, Colonoscopy, flexible; with removal of tumor(s), polyp(s), [...] congenital malformations of intestine CPT copyright 2021 [employer]. All rights reserved. The codes documented in this report are preliminary and upon motors and generators inspector reviewmay be revised to meet current compliance requirements. Procedure Date: 06/07/2024 9:16:17 AM [address] [place] [address] us Lubna TATE GI PROCEDURE ORDERABLES Dottie l Result * (ABNORMAL) Basic metabolic panel (06/14/2023 11:33 AM EST) SODIUM 139 133 - 146 mmol/L [facility] CHLORIDE 96 96 - 108 mmol/L [facility] POTASSIUM 2.9(L) 3.3 - 5.1 mmol/L [facility] CO2 29 21 - 35 mmol/L [facility] BUN 8 6 - 19 mg/dL [facility] CREATININE 0.70 0.5 - 1.5 mg/dL [facility] GLUCOSE 125(H) 70 - 99 mg/dL [facility] CALCIUM 9.5 8.4 - 10.3 mg/dL [facility] EGFR 101 >59 mL/min/1.7 3m2 [facility] Comment:Estimated glomerular filtration rate calculated using the CKD-EPI refit equation. ANION GAP 17 10 - 20 mmol/L [facility] Blood 06/14/2023 11:3 3 AM EST 06/14/2023 11:48 AM EST us Trae Scales MD LAB BLOOD BKR ORD ERABLES Final Result Performing Organization Address City/State/[facility] Co de Phone Number [address] [address] * (ABNORMAL) Pap Test (09/29/2022 12:00 AM EST) 09/29/2022 10/01/2022 9:1 5 AM EST Narrative SEE NARRATIVE - 10/08/2022 2:50 PM EST [address] [address] Bilingual Customer Service: Jo-Ann Thao MD UNIVERSAL WORK[employer] LIVING Cytology Report FINAL DIAGNOSIS A. PAP SMEAR [...] 59, 66, 68) Note: Testing performed by [employer] HR-HPV analysis. Clinical correlation is advised. This HPV test was performed at [facility], [address] [place] [address]. This test has been FDA approved for SurePath cervical cytology specimens. The accuracy and precision of this test for all other specimen sources has been verified in the Cytopathology Laboratory of the [facility] and has not been cleared or approved by the U.S. Food and Drug Administration. Clinical correlation is advised. CLINICAL HISTORY Date of Last Menstrual Period: 7 YRS AGO Menstrual History: Post Menopausal Other Clinical Conditions: Screening Pap SPECIMEN SOURCE A: PAP SMEAR (SUREPATH) CE Patient Name: KUSH BLACK : 1965 (Age: 57) Sex: F Institution[facility] Date of Collection: 09/29/2022 Date of Reported: 10/08/2022 14:50 Results to: Lubna Johnson NP Lubna Johnson NP CYTOLOGY ORDERABLES Fi nal Result SEE NARRATIVE from Last 3 Months or Most Recently Relevant to Health Maintenance Insurance [address] [place] [address] [facility] HMO WORKERS COMPENSATION Care Teams Director Of Teaching And Learning Relationship Specialty Start Date End Date Lubna Johnson NP [address] [place] [phone] [email or web address] PCP - General Nurse Practitioner 06/07/24 Additional Source Comments The information contained in this document represents components of the legal health record. It is not the complete legal health record.[facility]
--- OUTSIDE RECORDS SUMMARY | 2025-06-18 08:05 | XMS_ITS | Encounter Summary ---
Author Organization [facility] Address [address] [place] [address] [place] [address] Phone Care Team Providers Care Fence Installer Helper Name Role Phone Kiana Lozano Primary Care Provider [phone] Kiana Lozano Primary Care Provider [phone] Pcp, Unknown Primary Care Provider Lubna Hartmann NP Primary Care Provider Encounter Details Date Type Department Care Team (Late st Contact Info) Description 03/19/2022 Procedure Pass [place] Admitting Dept - Virtual Department [address] [place] [address] Social History Tobacco Use Types Packs/Day Years Used Date Smoking Tobacco: Every Day Cigarettes 0.5 39.9 Started: 1985 Smokeless Tobacco: Never Alcohol [...] documented as of this encounter Care Teams Fence Installer Helper Relationship Specialty Start Date End Date Kiana Lozano PA [address] [place] [address] PCP - General Unknown Provider Specialty 02/22/22 Kiana Lozano PA [address] [facility] [place] [address] PCP - General Physician Consumer Affairs Director 05/15/23 06/13/23 Pcp, Unknown PCP - General 06/14/23 06/06/24 Lubna Johnson NP [address] [place] [phone] [email or web address] PCP - General Nurse Practitioner 06/07/24 documented as of this encounter Additional Source Comments The information contained in this document represents components of the legal health record. It is not the complete legal health record.[facility]
--- OUTSIDE RECORDS SUMMARY | 2025-06-18 08:05 | XMS_ITS | Encounter Summary ---
Author Organization [facility] Address [address] [facility] [address] [place] [address] Phone Care Team Providers Care Poultry Hanger Name Role Phone Edel Radford MD Unavailable [phone] Shonda Lim NP Unavailable [phone] Shonda Lim DRY PAN CHARGER Primary Care Provider [phone] Pcp, Unknown Primary Care Provider UnavailKiana Perdue Primary Care Provider [phone] Kiana Lozano Primary Care Provider [phone] Pcp, Unknown Primary Care Provider UnavailLubna Frost DRY PAN CHARGER Primary Care Provider Encounter Details Date Type Department Care Team (Late st Contact Info) Description 03/07/2018 Ancillary Orders [address] [place] [address] Samir Nichols MD [address] [place] [address] [email or web address] Left knee pain, unspecified chronicity Social History [...] EDT No fractures or dislocation. POS - [id number] Narrative 03/07/2018 1:12 PM EDT HISTORY: Pain [...] IMPRESSION: No fractures or dislocation. POS - [id number] Samir Nichols MD IMG XR LOWER EXTREMITY [...] documented as of this encounter Care Teams Poultry Hanger Relationship Specialty Start Date End Date Shonda Lim NP [address] [place] [address] PCP - General 08/11/17 03/27/21 Pcp, Unknown PCP - General 03/28/21 02/21/22 Kiana Lozano PA [address] [place] [address] PCP - General Unknown Provider Specialty 02/22/22 05/14/23 Kiana Lozano PA [address] [place] [address] PCP - General Physician Radar Engineering Teacher 05/15/23 06/13/23 Pcp, Unknown PCP - General 06/14/23 06/06/24 Lubna Johnson NP [address] [place] [phone] [email or web address] PCP - General Nurse Practitioner 06/07/24 Edel Radford MD [address] [facility], [address] [place] [phone] [email or web address] Historical LMR Provider 05/26/17 08/15/21 Shonda Lim NP [address] [place] [address] Historical LMR Provider 05/26/17 08/15/21 documented as of this encounter Additional Source Comments The information contained in this document represents components of the legal health record. It is not the complete legal health record.[facility]
--- OUTSIDE RECORDS SUMMARY | 2025-06-18 08:05 | XMS_ITS | Encounter Summary ---
Author Organization [facility] Address [address] [place] [address] Phone Care Team Providers Care Closing Manager Name Role Phone Pcp, Unknown Primary Care Provider Lubna Hartmann NP Primary Care Provider Reason for Referral * Outpatient Procedure - Closed Specialty Diagnoses / Procedures Referred By Libertad glez Referred To Contact Radiology Diagnoses Localized edema Procedures Adult Echo TTE Lubna Johnson NP [address] [place] [phone] Phone: tel: fax: [email or web address] Referral ID Status Reason Start Date Expiration Date Visits Re quested Visits Authorized [id number] Closed 06/23/2023 1 1 Encounter Details Date Type Department Care Team (Late st Contact Info) Description 06/23/2023 Transcribe Orders Virtual Department [address] [place] [address] Lubna Johnson NP [address] [place] [address] [email or web address] Localized edema (Primary Dx) Social History [...] Edema documented in this encounter Care Teams Closing Manager Relationship Specialty Start Date End Date Pcp, Unknown PCP - General 06/14/23 06/06/24 Lubna Johnson, LATOYA [address] [place] [phone] [email or web address] PCP - General Nurse Practitioner 06/07/24 documented as of this encounter Additional Source Comments The information contained in this document represents components of the legal health record. It is not the complete legal health record.[facility]
--- OUTSIDE RECORDS SUMMARY | 2025-06-18 08:05 | XMS_ITS | Encounter Summary ---
Author Organization [facility] Address [address] [facility] [address] [place] [address] Phone Care Team Providers Care Fire Production Operator Name Role Phone Kiana Lozano Primary Care Provider [phone] Pcp, Unknown Primary Care Provider Lubna Hartmann NP Primary Care Provider Encounter Details Date Type Department Care Team (Late st Contact Info) Description 05/24/2023 Procedure Pass [facility] Endoscopy Admitting Dept Virtual Department [address] [place] [address] Social History Tobacco Use Types Packs/Day Years [...] documented as of this encounter Care Teams Fire Production Operator Relationship Specialty Start Date End Date Kiana Lozano PA [address] [place] [address] PCP - General Physician Garment Cutter 05/15/23 06/13/23 Pcp, Unknown PCP - General 06/14/23 06/06/24 Lubna Johnson NP [address] [place] [phone] [email or web address] PCP - General Nurse Practitioner 06/07/24 documented as of this encounter Additional Source Comments The information contained in this document represents components of the legal health record. It is not the complete legal health record.[facility]
--- OUTSIDE RECORDS SUMMARY | 2025-06-18 08:05 | XMS_ITS | Encounter Summary ---
Author Organization [facility] Address [address] [facility] [address] [place] [address] Phone Care Team Providers Care Carbon Brushes Assembler Name Role Phone Lubna Johnson ADMISSION LIAISON Primary Care Provider Encounter Details Date Type Department Care Team ([facility] st Contact Info) Description 06/07/2024 Procedure Pass [facility] Endoscopy Admitting Dept Virtual Department [address] [place] [address] Social History Tobacco Use Types Packs/Day Years [...] on filedocumented in this encounter Care Teams Carbon Brushes Assembler Relationship Specialty Start Date End Date Lubna Johnson NP [address] [place] [phone] [email or web address] PCP - General Nurse Practitioner 06/07/24 documented as of this encounter Additional Source Comments The information contained in this document represents components of the legal health record. It is not the complete legal health record.[facility]
--- OUTSIDE RECORDS SUMMARY | 2025-06-18 08:05 | XMS_ITS | Encounter Summary ---
Author Organization [facility] Address [address] [place] [address] Phone Care Team Providers Care Currency Machine Operator Name Role Phone Edel Radford MD Unavailable [phone] Shonda Lim NP Unavailable [phone] Shonda Lim NP Primary Care Provider [phone] Pcp, Unknown Primary Care Provider UnavailKiana Perdue Primary Care Provider [phone] Kiana Lozano Primary Care Provider [phone] Pcp, Unknown Primary Care Provider UnavailLubna Frost FINANCE ASSISTANT Primary Care Provider Encounter Details Date Type Department Care Team (Late st Contact Info) Description 03/07/2018 Ancillary Orders [address] [place] [address] Cornelio Vera PA-C [address] [place] [address] [email or web address] Left knee pain, unspecified chronicity Social History [...] documented as of this encounter Care Teams Currency Machine Operator Relationship Specialty Start Date End Date Shonda Lim, FINANCE ASSISTANT [address] [place] [phone] PCP - General 08/11/17 03/27/21 Pcp, Unknown PCP - General 03/28/21 02/21/22 Kiana Lozano PA [address] [place] [address] PCP - General Unknown Provider Specialty 02/22/22 05/14/23 Kiana Lozano PA [address] [place] [address] PCP - General Physician Farm Equipment Engineer 05/15/23 06/13/23 Pcp, Unknown PCP - General 06/14/23 06/06/24 Lubna Johnson NP [address] [place] [phone] [email or web address] PCP - General Nurse Practitioner 06/07/24 Edel Radford MD [address] [place] [phone] [email or web address] Historical LMR Provider 05/26/17 08/15/21 Shonda Lim FINANCE ASSISTANT [address] [place] [phone] Historical LMR Provider 05/26/17 08/15/21 documented as of this encounter Additional Source Comments The information contained in this document represents components of the legal health record. It is not the complete legal health record.[facility]
--- NOTE | 2025-06-18 08:12 | MHC.OFFVIS ---
Vital Signs 06/18/25 08:13 Height 5 ft 1 in Weight 229 lb 4.492 oz BMI 43.3 BP 124/80 Blood Pressure Location Lt brachial Position Sitting Pulse 76 Pulse Source Pulse Oximeter Pulse Oximetry (%) 100 Oxygen Delivery Method Room Air Intake Visit Reasons: follow up Intake Note: Patient presents for fibromyalgia follow up. Accompanied by: Self / Same As Patient Allergies ibuprofen Allergy (Mild, Verified 06/18/25 08:13) Unknown varenicline (From Chantix) Allergy (Mild, Verified 06/18/25 08:13) Unknown duloxetine Adverse Reaction (Mild, Verified 06/18/25 22:01) Lethargy HPI HPI follow up: Details: Headache frequency reduced to 1-2 times a month. She stopped taking ibuprofen and tylenol. It lasts a few hours. She has a URI since . Headaches triggered by pain and stress. She had another URI last week. Cymbalta caused lethargic. Left knee was replaced this year. She is experiencing right knee pain with difficulty getting up from seated position. Night vision is getting back. Cataract surgery a year ago. She has not had an eye exam. [facility] Surgical History History of left knee replacement Family History Mother Diabetes Heart disease Breast cancer Father Arthritis Liver cancer Social History Alcohol intake: never Patient Tobacco Use Status: Current everyday Tobacco user Physical Exam Vital Signs: Last Vital Signs Pulse 76 06/18/25 08:13 BP 124/80 06/18/25 08:13 Pulse Ox 100 06/18/25 08:13 Oxygen Delivery Method Room Air 06/18/25 08:13 BMI result Body Mass Index 43.3 Const Other: General: Comfortable CVS: RRR Respiratory: clear to auscultation bilaterally. Good respiratory effort Skin: No lesions seen MSK: Shoulder abduction 160 degrees with good internal and external rotation with pain. She has no synovitis on exam. Tender right knee with mild effusion. Normal knee flexion. Temples are not tender on palpation. Diffuse allodynia of extremities. Office Procedures AMB Joint Injection/Aspiration Joint Injection/Aspiration Details: Right knee joint Prep: site was prepped using aseptic technique Injected: 40 mg of, Kenalog, with 1 mL of and 1% plain lidocaine Procedure: Informed verbal consent was obtained. The patient tolerated the procedure well. Postprocedure protocol was discussed with patient. Coding 43498 - Large joint Procedure code (CPT) selection complete Office Meds lidocaine (PF) 10 mg/mL (1 %) injection solution Performing Provider: Stephane Dewitt MD Performing Location: [facility] Administered by: Tammie Paulino RN on 06/18/25 08:53 Dose Route Admin Location Dispensed Lot Number Expiration Date [facility] Learning Center Instructor 1 mL Infiltration right knee 2 mL [id number] 11/05/26 47485-287-20 [employer] Total Dispensed Waste 2 mL 50 % Kenalog 40 mg/mL suspension for injection Performing Provider: Stephane Dewitt MD Performing Location: [facility] Administered by: Tammie Paulino RN on 06/18/25 08:53 Dose Route Admin Location Dispensed Lot Number Expiration Date [facility] Learning Center Instructor 40 mg intra-articular right knee 1 mL [id number] 02/04/27 [address]-3 [employer] Total Dispensed Waste 1 mL 0 % Assessment & Plan Assessment & Plan (1) Giant cell arteritis: Comment: Headaches have subsided since discontinuing Tylenol and NSAIDs. She continues to have jaw clicking and has noted decreased vision at night. Fibromyalgia is contributing to diffuse allodynia. 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 Initially presenting with headaches, jaw claudication, scalp tenderness, stiffness, shoulder girdle and hip girdle pain with reduced function. She responded to high dose prednisone but was [facility] and relapsed with headaches, scalp tenderness, fatigue, stiffness, shoulder/hip girdle pain. She relapsed when she was out of prednisone for 3 weeks with elevated inflammatory markers. She was restarted on prednisone 20 mg daily then it was increased to 40 mg daily 08/2024. She has had benefit on high dose prednisone daily but not complete resolution of GCA and PMR symptoms due to incomplete treatment duration as prednisone was either tapered too quickly or she did not have refill for prednisone. She also has suffered side effects of weight gain, anxiety and tremors of upper extremities and lower extremities from long-term glucocorticoid use. She self discontinued prednisone after September 2024 as weight gain from prednisone side effect was delaying surgery, leading to relapse disease. She has a history of hyperlipidemia controlled on atorvastatin. Restarted Actemra February 2025 due to relapse disease. Prednisone was not restarted because patient had history of toxicity to long-term prednisone use and declined it at the time. Code(s): M31.6 - Other giant cell arteritis Category: Medical Plan: Continue Actemra 125 mg once week. Labs for drug monitoring ordered with CBC and absolute neutrophil count and fasting lipid panel. She will have labs done tomorrow. MRI TMJ ordered last visit. She will receive contact for central scheduling to schedule MRI Ophthalmology evaluation. I encouraged patient to call office again for eye exam Follow-up with PCP at the end of the month for fibromyalgia management Return to clinic in 3 months (2) Fibromyalgia: Comment: Diffuse allodynia is consistent with fibromyalgia. Cymbalta caused lethargy. Code(s): M79.7 - Fibromyalgia Category: Medical Plan: Follow up with PCP for fibromyalgia management (3) Osteoarthritis of right knee: Comment: X-rays from 2021 [facility] revealed bilateral osteoarthritis. Left knee replaced. Code(s): M17.11 - Unilateral primary osteoarthritis, right knee Category: Medical Plan: Patient received right knee cortisone injection Return to clinic in 3 months Orders: Orders C Reactive Protein Today Z79.899 - Other termite exterminator helper (current) drug therapy Complete Blood Count Auto Diff Today Z79.899 - Other termite exterminator helper (current) drug therapy Alanine Aminotransferase Today Z79.899 - Other termite exterminator helper (current) drug therapy Aspartate Amino Transferase Today Z79.899 - Other assisted (current) drug therapy Creatinine Today Z79.899 - Other termite exterminator helper (current) drug therapy Erythrocyte Sedimentation Rate Today Z79.899 - Other assisted (current) drug therapy Lipid Panel Today Z79.899 - Other termite exterminator helper (current) drug therapy Absolute Neutrophil Count Today Z79.899 - Other termite exterminator helper (current) drug therapy AMB Joint Injection/Aspiration Today M17.11 - Unilateral primary osteoarthritis, right knee Medications: Discontinued duloxetine Discontinued Reason: Doctor's Order 30 mg PO DAILY 30 caps 5RF Coding Level of Care Code Est Pt Level 4 (00921) Complex EM visit Add On G2211 Diagnoses Giant cell arteritis M31.6 Fibromyalgia M79.7 Osteoarthritis of right knee M17.11 CPT Codes Coding - 06220 Large joint: 17114 - Large joint ([id number])
[2025-06-18 08:13] VITALS: BP 124/80; PULSE 76; O2SAT 100; BMI 43.3
== END 2025-06-18 08:40 | disposition home or self-care (01) ==
LOC: HO.RHES 08:02
PROVIDERS: PCP Family Medicine; Visit Provider Internal Medicine Rheumatology
DX: M31.6 Other giant cell arteritis (principal); M79.7 Fibromyalgia; M17.11 Unilateral primary osteoarthritis, right knee
CPT/HCPCS: 20610; 99214

== ENCOUNTER → 2025-06-18 08:02 | Outpatient (BNVA) | payer OTHER, SELFPAY | PROVIDERS: PCP Family Medicine; Visit Provider Internal Medicine Rheumatology | DX: M17.11 Unilateral primary osteoarthritis, right knee (principal) | CPT/HCPCS: 20610; J2003; J3301 ==

== ENCOUNTER 2025-08-06 08:26 | Outpatient (REF) | payer OTHER, SELFPAY ==
--- OUTSIDE RECORDS SUMMARY | 2025-08-06 10:04 | XMS_ITS | Clinical Summary ---
Author Organization [facility] Address [address] [place] [phone] Phone Care Team Providers Care Padded Products Finisher Name Role Phone Lubna Johnson MARKETING PROPOSAL SPECIALIST Primary Care Provider Allergies Active Allergy Reactions [...] Take 50 mg by mouth every morning. Active traMADoL (ULTRAM) 50 mg tablet Take 50 mg by mouth 3 (three) times a day as needed. 4 Active Active Problems No known active problems Immunizations Immunization Administration Dates Next Due COVID-19 (Pre-05/30) Pfizer Vaccine, mRNA, PF ,08/10/2020 Social History Tobacco Use Types Packs/Day Years Used Date Smoking Tobacco: Every Day Cigarettes 0.1 40 Started: 1984 Smokeless Tobacco: Never Tobacco Cessation:Ready [...] Td,Tdap Booster 04/12/2029 04/12/2019 , 06/26/2010 COLONOSCOPY 06/07/2029 06/07/2024 COLORECTAL CANCER SCREENING 06/07/2029 HEPATITIS A VACCINES Aged Out No long [...] Matute MD - 06/07/2024 9:16 AM EDT [facility] Patient Name: Kush Byrdault Attending MD:: ANUJ MATUTE MD, Procedure Date: 06/07/2024 9:16 AM Date of : 1965 Age: 58 Admit Type: Outpatient Gender: Female Room: [place] [address] Referring MD: Lubna Johnson Exam Type: Colonoscopy [...] monitored continuously. The Olympus adult variable colonoscope [id number] #4 was introduced through the anus and advanced to the cecum, identified by the appendiceal orifice, ileocecal valve and palpation. The colonoscopy was performed with moderate difficulty due to aredundant colon and significant looping. Successfulcompletion of the procedure was aided by applying abdominal pressure. The patient tolerated the procedure. The quality of the bowel preparation was evaluatedusing the BBPS ([place] Bowel Preparation Scale) withscores of: Right Colon [...] 9:16 AM Procedure Code(s): --- Professional --- 39434, Colonoscopy, flexible; with removal of tumor(s), polyp(s), or other lesion(s) by snare technique --- Technical --- 68498, Colonoscopy, flexible; with removal of tumor(s), polyp(s), [...] congenital malformations of intestine CPT copyright 2021 [employer]. All rights reserved. The codes documented in this report are preliminary and upon jumpbasting collar baster reviewmay be revised to meet current compliance requirements. Procedure Date: 06/07/2024 9:16:[address] [place] [address] Lubna TATE GI PROCEDURE ORDERABLES Dottie l [...] LAB BLOOD BKR ORD ERABLES Final Result [address] [address] * (ABNORMAL) Pap Test (09/29/2022 12:00 AM EST) 09/29/2022 10/01/2022 9:1 5 AM EST Narrative SEE NARRATIVE - 10/08/2022 2:50 PM EST [address] [address] Ecommerce Analyst: Jo-Ann Thao MD AUTOMOTIVE TECHNOLOGY INSTRUCTOR Cytology Report FINAL DIAGNOSIS A. PAP SMEAR [...] 59, 66, 68) Note: Testing performed by [employer] On[employer]arity HR-HPV analysis. Clinical correlation is advised. This HPV test was performed at [facility], [address] [place] [address]. This test has been FDA approved for SurePath cervical cytology specimens. The accuracy and precision of this test for all other specimen sources has been verified in the Cytopathology Laboratory of the [facility] and has not been cleared or approved by the U.S. Food and Drug Administration. Clinical correlation is advised. CLINICAL HISTORY Date of Last Menstrual Period: 7 YRS AGO Menstrual History: Post Menopausal Other Clinical Conditions: Screening Pap SPECIMEN SOURCE A: PAP SMEAR (SUREPATH) CE Patient Name: KUSH BLACK : 1965 (Age: 57) Sex: F Institution: [facility] Location: [facility] Date of Collection: 09/29/2022 Date of Reported: 10/08/2022 14:50 Results to: Lubna Johnson NP Lubna Johnson NP CYTOLOGY ORDERABLES nal Result SEE NARRATIVE from Last 3 Months or Most Recently Relevant to Health Maintenance Insurance [address] [id number] [facility] HMO WORKERS COMPENSATION Care Teams Padded Products Finisher Relationship Specialty Start Date End Date Lubna Johnson NP [address] [place] [phone] [email or web address] PCP - General Nurse Practitioner 06/07/24 Additional Source Comments The information contained in this document represents components of the legal health record. It is not the complete legal health record.[facility]
--- OUTSIDE RECORDS SUMMARY | 2025-08-06 10:04 | XMS_ITS | Encounter Summary ---
Author Organization [facility] Address [address] [place] [address] Phone Care Team Providers Care Family Life Counselor Name Role Phone Pcp, Unknown Primary Care Provider Kiana Mcrae Primary Care Provider [phone] Kiana Lozano Primary Care Provider [phone] Pcp, Unknown Primary Care Provider Lubna Hartmann NP Primary Care Provider Encounter Details Date Type Department Care Team (Late st Contact Info) Description 12/09/2021 Procedure Pass [facility], [address] [address] Social History Tobacco Use Types Packs/Day Years [...] documented as of this encounter Care Teams Family Life Counselor Relationship Specialty Start Date End Date Pcp, Unknown PCP - General 03/28/21 02/21/22 Kiana Lozano PA [address] [place] [address] PCP - General Unknown Provider Specialty 02/22/22 Kiana Lozano PA [address] [place] [address] PCP - General Physician Director Of Development And Marketing 05/15/23 06/13/23 Pcp, Unknown PCP - General 06/14/23 06/06/24 Lubna Johnson NP [address] [place] [phone] [email or web address] PCP - General Nurse Practitioner 06/07/24 documented as of this encounter Additional Source Comments The information contained in this document represents components of the legal health record. It is not the complete legal health record.[facility]
--- OUTSIDE RECORDS SUMMARY | 2025-08-06 10:04 | XMS_ITS | Encounter Summary ---
Author Organization [facility] Address [address] [place] [address] Phone Care Team Providers Care Hot Wound Spring Production Supervisor Name Role Phone Pcp, Unknown Primary Care Provider Lubna Hartmann NP Primary Care Provider Reason for Referral * Outpatient Procedure - Closed Specialty Diagnoses / Procedures Referred By Libertad glez Referred To Contact Radiology Diagnoses Localized edema Procedures Adult Echo TTE Lubna Johnson NP [address] [place] [phone] Phone: tel: fax: [email or web address] Referral ID Status Reason Start Date Expiration Date Visits Re quested Visits Authorized [id number] Closed 06/23/2023 1 1 Encounter Details Date Type Department Care Team (Late st Contact Info) Description 06/23/2023 Transcribe Orders Virtual Department [address] [place] [address] Lubna Johnson NP [address] [place] [phone] [email or web address] Localized edema (Primary Dx) Social History Tobacco Use Types Packs/Day Years Used Date Smoking Tobacco: Every Day Cigarettes 0.1 40 Started: 1984 Smokeless Tobacco: Never Alcohol Use [...] Edema documented in this encounter Care Teams Hot Wound Spring Production Supervisor Relationship Specialty Start Date End Date Pcp, Unknown PCP - General 06/14/23 06/06/24 Lubna Johnson, LATOYA [address] [place] [phone] [email or web address] PCP - General Nurse Practitioner 06/07/24 documented as of this encounter Additional Source Comments The information contained in this document represents components of the legal health record. It is not the complete legal health record.[facility]
--- OUTSIDE RECORDS SUMMARY | 2025-08-06 10:04 | XMS_ITS | Encounter Summary ---
Author Organization [facility] Address [address] [facility] [address] [place] [address] Phone Care Team Providers Care Damage Inside Adjuster Name Role Phone Kiana Lozano Primary Care Provider [phone] Kiana Lozano Primary Care Provider [phone] Pcp, Unknown Primary Care Provider Lubna Hartmann NP Primary Care Provider Encounter Details Date Type Department Care Team (Late st Contact Info) Description 03/19/2022 Procedure Pass [place] Admitting Dept - Virtual Department [address] [place] [address] Social History Tobacco Use Types Packs/Day Years Used Date Smoking Tobacco: Every Day Cigarettes 0.5 40 Started: 1984 Smokeless Tobacco: Never Alcohol [...] documented as of this encounter Care Teams Damage Inside Adjuster Relationship Specialty Start Date End Date Kiana Lozano PA [address] [place] [address] PCP - General Unknown Provider Specialty 02/22/22 Kiana Lozano PA [address] [facility] [place] [address] PCP - General Physician Bundling Machine Operator 05/15/23 06/13/23 Pcp, Unknown PCP - General 06/14/23 06/06/24 Lubna Johnson NP [address] [place] [phone] [email or web address] PCP - General Nurse Practitioner 06/07/24 documented as of this encounter Additional Source Comments The information contained in this document represents components of the legal health record. It is not the complete legal health record.[facility]
--- OUTSIDE RECORDS SUMMARY | 2025-08-06 10:04 | XMS_ITS | Encounter Summary ---
Author Organization [facility] Address [address] [facility] [address] [place] [address] Phone Care Team Providers Care Mint Wafer Depositor Name Role Phone Kiana Lozano Primary Care Provider [phone] Pcp, Unknown Primary Care Provider Lubna Hartmann NP Primary Care Provider Encounter Details Date Type Department Care Team (Late st Contact Info) Description 05/24/2023 Procedure Pass [facility] Endoscopy Admitting Dept Virtual Department [address] [place] [address] Social History Tobacco Use Types Packs/Day Years [...] documented as of this encounter Care Teams Mint Wafer Depositor Relationship Specialty Start Date End Date Kiana Lozano PA [address] [place] [address] PCP - General Physician Exercise Rider 05/15/23 06/13/23 Pcp, Unknown PCP - General 06/14/23 06/06/24 Lubna Johnson NP [address] [place] [phone] [email or web address] PCP - General Nurse Practitioner 06/07/24 documented as of this encounter Additional Source Comments The information contained in this document represents components of the legal health record. It is not the complete legal health record.[facility]
--- OUTSIDE RECORDS SUMMARY | 2025-08-06 10:04 | XMS_ITS | Encounter Summary ---
Author Organization [facility] Address [address] [facility] [address] [place] [address] Phone Care Team Providers Care Toaster Element Repairer Name Role Phone Edel Radford MD Unavailable [phone] Shonda Lim NP Unavailable [phone] Shonda Lim CHEMICAL COMPOUNDER Primary Care Provider [phone] Pcp, Unknown Primary Care Provider UnavailKiana Perdue Primary Care Provider [phone] Kiana Lozano Primary Care Provider [phone] Pcp, Unknown Primary Care Provider UnavailLubna Frost CHEMICAL COMPOUNDER Primary Care Provider Encounter Details Date Type Department Care Team (Late st Contact Info) Description 03/07/2018 Ancillary Orders [address] [place] [address] Samir Nichols MD [address] [place] [phone] [email or web address] Left knee pain, unspecified chronicity Social History [...] EDT No fractures or dislocation. POS - [id number] Narrative 03/07/2018 1:12 PM EDT HISTORY: Pain [...] IMPRESSION: No fractures or dislocation. POS - [id number] Samir Nichols MD IMG XR LOWER EXTREMITY [...] documented as of this encounter Care Teams Toaster Element Repairer Relationship Specialty Start Date End Date Shonda Lim NP [address] [place] [address] PCP - General 08/11/17 03/27/21 Pcp, Unknown PCP - General 03/28/21 02/21/22 Kiana Lozano PA [address] [place] [address] PCP - General Unknown Provider Specialty 02/22/22 05/14/23 Kiana Lozano PA [address] [place] [address] PCP - General Physician Meat Stock Clerk 05/15/23 06/13/23 Pcp, Unknown PCP - General 06/14/23 06/06/24 Lubna Johnson NP [address] [place] [phone] [email or web address] PCP - General Nurse Practitioner 06/07/24 Edel Radford MD [address] [facility], [address] [place] [id number] [email or web address] Historical LMR Provider 05/26/17 08/15/21 Shonda Lim NP [address] [place] [address] Historical LMR Provider 05/26/17 08/15/21 documented as of this encounter Additional Source Comments The information contained in this document represents components of the legal health record. It is not the complete legal health record.[facility]
--- OUTSIDE RECORDS SUMMARY | 2025-08-06 10:04 | XMS_ITS | Encounter Summary ---
Author Organization [facility] Address [address] [place] [address] [place] [phone] Phone Care Team Providers Care Molder Bench Name Role Phone Pcp, Unknown Primary Care Provider Lubna Hartmann BUTTONER Primary Care Provider Encounter Details Date Type Department Care Team (Late st Contact Info) Description 06/23/2023 Procedure Pass [email or web address] [address] [place] [address] Social History Tobacco Use Types Packs/Day Years [...] on filedocumented in this encounter Care Teams Molder Bench Relationship Specialty Start Date End Date Pcp, Unknown PCP - General 06/14/23 06/06/24 Lubna Johnson NP [address] [place] [phone] [email or web address] PCP - General Nurse Practitioner 06/07/24 documented as of this encounter Additional Source Comments The information contained in this document represents components of the legal health record. It is not the complete legal health record.[facility]
--- OUTSIDE RECORDS SUMMARY | 2025-08-06 10:04 | XMS_ITS | Encounter Summary ---
Author Organization [facility] Address [address] [place] [address] Phone Care Team Providers Care Doughnut Icer Machine Name Role Phone Edel Radford MD Unavailable [phone] Shonda Lim NP Unavailable [phone] Shonda Lim NP Primary Care Provider [phone] Pcp, Unknown Primary Care Provider UnavailKiana Perdue Primary Care Provider [phone] Kiana Lozano Primary Care Provider [phone] Pcp, Unknown Primary Care Provider UnavailLubna Frost SILK WINDING MACHINE OPERATOR Primary Care Provider Encounter Details Date Type Department Care Team (Late st Contact Info) Description 03/07/2018 Ancillary Orders [address] [place] [address] Cornelio Vera PA-C [address] [place] [phone] [email or web address] Left knee pain, [...] documented as of this encounter Care Teams Doughnut Icer Machine Relationship Specialty Start Date End Date Shonda Lim, SILK WINDING MACHINE OPERATOR [address] [place] [phone] PCP - General 08/11/17 03/27/21 Pcp, Unknown PCP - General 03/28/21 02/21/22 Kiana Lozano PA [address] [place] [address] PCP - General Unknown Provider Specialty 02/22/22 05/14/23 Kiana Lozano PA [address] [place] [address] PCP - General Physician Distribution Lead 05/15/23 06/13/23 Pcp, Unknown PCP - General 06/14/23 06/06/24 Lubna Johnson NP [address] [place] [phone] [email or web address] PCP - General Nurse Practitioner 06/07/24 Edel Radford MD [address] [place] [phone] [email or web address] Historical LMR Provider 05/26/17 08/15/21 Shonda Lim SILK WINDING MACHINE OPERATOR [address] [place] [phone] Historical LMR Provider 05/26/17 08/15/21 documented as of this encounter Additional Source Comments The information contained in this document represents components of the legal health record. It is not the complete legal health record.[facility]
--- OUTSIDE RECORDS SUMMARY | 2025-08-06 10:04 | XMS_ITS | Encounter Summary ---
Author Organization [facility] Address [address] [facility] [address] [place] [address] Phone Care Team Providers Care Inspector Plating Name Role Phone Lubna Johnson RN MEDICARE Primary Care Provider Encounter Details Date Type Department Care Team ([facility] st Contact Info) Description 06/07/2024 Procedure Pass [facility] Endoscopy Admitting Dept Virtual Department [address] [place] [address] Social History Tobacco Use Types Packs/Day Years [...] on filedocumented in this encounter Care Teams Inspector Plating Relationship Specialty Start Date End Date Lubna Johnson NP [address] [place] [phone] [email or web address] PCP - General Nurse Practitioner 06/07/24 documented as of this encounter Additional Source Comments The information contained in this document represents components of the legal health record. It is not the complete legal health record.[facility]
[2025-08-06 11:33] LABS: MANUAL DIFF FLAG NO
[2025-08-06 11:37] LABS: Hematocrit 40.5 % (37.0-47.0); Hemoglobin 13.9 g/dl (12.0-16.0); Imm Gran Abs Auto 0.04 X10*3/uL (0.00-0.03); Imm Gran Pct Auto 0.5 % (0.0-0.4); Lymphocytes Absolute Auto 0.7 X10*3/uL (1.2-4.9); Mean Corpuscular HGB Conc 34.3 g/dl (31.0-35.0); Mean Corpuscular Hemoglobin 30.3 pg (27.0-33.0); Mean Corpuscular Volume 88.4 fL (80.0-98.0); NRBC Abs Auto 0.000 X10*3/uL (0.0-0.012); NRBC Pct Auto 0.0 /100WBC (0.0-0.2); Neut%MD 87.7 %; Platelet Count 225 X10*3/uL (160-400); Red Blood Count 4.58 X10*6/uL (4.20-5.50); WBCANC 7.3 X10*3/uL; White Blood Count 7.3 X10*3/uL (4.8-10.8)
[2025-08-06 12:10] LABS: Alanine Aminotransferase 37 U/L (0-31); Aspartate Amino Transferase 39 U/L (5-31); Cholesterol 243 mg/dL (<200); Estimated Glomerular Filt Rate > 60; HDL Cholesterol 73 mg/dL (>40); Triglycerides 120 mg/dL (<150)
== END 2025-08-06 08:27 ==
LOC: HO.WFDLDS 08:26
PROVIDERS: Student in an Organized Health Care Education/Training Program; Visit Provider Internal Medicine Rheumatology
DX: Z79.899 Other long term (current) drug therapy (principal)
CPT/HCPCS: 36415; 80061; 82565; 84450; 84460; 85025; 85652; 86140